=== PATIENT | female | born 1945 | race Caucasian/White ===

== ENCOUNTER 2019-04-13 15:30 | Outpatient (CLI) | payer MEDICARE, SELFPAY ==
--- NOTE | ~2019-04-13 | MM_ITS ---
EXAMINATION: MM screening sam BI w simone HISTORY: Screening mammogram TECHNIQUE: Craniocaudal and mediolateral oblique 3-D tomosynthesis images were obtained and synthetic 2-D images were generated. CAD analysis was submitted and interpreted. COMPARISON: 02/24/2018, 01/16/2016, 12/27/2014 bilateral digital screening mammogram examinations BREAST PARENCHYMAL COMPOSITION: There are scattered areas of fibroglandular density. FINDINGS: Stable mild fibroglandular asymmetry at upper central left breast since 12/27/2014. There i s no evidence of suspicious mass, calcification, or new architectural distortion to suggest malignanc y in either breast. There has been no suspicious interval change. IMPRESSION: 1. No mammographic evidence of malignancy. 2. Recommend routine screening mammography in one year. BI-RADS Category 2: Benign finding(s). Reviewed, dictated and finalized at location A. CAL UNDERWRITER
== END 2019-04-13 15:31 | disposition home or self-care (01) ==
LOC: ANHIMG 15:34
PROVIDERS: PCP Internal Medicine; Visit Provider Obstetrics & Gynecology
DX: Z12.31 Encounter for screening mammogram for malignant neoplasm of breast (principal)
CPT/HCPCS: 77063; 77067

== ENCOUNTER 2019-04-16 10:00 | Outpatient (RCR) | payer MEDICARE, SELFPAY ==
--- NOTE | 2019-03-18 17:03 | PTOPEVAL ---
PHYSICAL THERAPY EVALUATION AND PLAN OF CARE Thank you for referring this patient to [facility]. Elana will be seen in physical therapy 2x/week for 4 weeks. Please review, sign, date and return this plan of care SHAYY. I agree with and certify that the following plan of care is medically necessary. Referring Physician Date Attending Provider: Meir Joshi MD Evaluation Outpatient Past Medical History Neurological History Hx Neurological Disorders No Significant History Cardiovascular History Hx Other Cardiac Disorders Yes: BILAT VEIN STRIPPING 2 TIMES Respiratory History Hx Respiratory Disorders No Significant History Gastrointestinal History Hx Appendectomy Yes Hx Cholecystectomy Yes Hx Gastric Bypass Surgery Yes Genitourinary History Hx Genitourinary Disorders No Significant History Musculoskeletal History Hx Fractures Yes: RT ULNA Hematological History Hx Hematological Disorders No Significant History Endocrine History Hx Endocrine Disorders No Significant History HEENT History Hx Tonsillectomy Yes Hx Other HEENT Disorders Yes: GLASSES, BILAT HEARING AIDS Integumentary History Hx Skin Disorders No Significant History Reproductive History Hx Tubal Ligation Yes Psychosocial History Hx Psychiatric Disorders No Significant History Pain History History of Any Previous or Ongoing No Significant History Instance of Pain Anesthesia History Hx Anesthesia Reactions No Significant History Evaluation Information Problem Diagnosis right ORIF olecranon and proximal ulna Onset 02/20/2019 Cause fall Subjective Information Elana is here today after Query Text:As Reported By Patient/ surgery for ORIF of right Family olecranon and proximal ulna. She had ORIF on 02/24/2019. She is wearing a locked brace (locked at -10deg of extension ) today with restrictions of lifting no greater than 10lbs. She is to wear the brace except when showering. Pain Scale Pain Scale Used Numeric (1 - 10) Self Report Pain Assessment Right Elbow(s) Reported Pain Level 0 Pain Score Pain Score 0: Self Report Elbow/Forearm Range of Motion Right Elbow Flexion - Active 120 Elbow Extension - Active 0 Forearm Supination - Active 45 Forearm Pronation - Active 85 Wrist Range of Motion Right Wrist Flexion - Active 50 Wr
--- NOTE | 2019-04-16 11:01 | PTOPEVAL ---
PHYSICAL THERAPY PLAN OF CARE UPDATE AND PROGRESS REPORT Thank you for referring this patient to [facility]. iI recomend continuing PT 1x/week for 4 weeks for continued strengthening. Please review, sign, date and return this plan of care SHAYY. I agree with and certify that the following plan of care is medically necessary. Referring Physician Date Attending Provider: Meir Joshi MD Re-evaluation Diagnosis right ORIF olecranon and proximal ulna Onset 02/20/2019 Cause fall Subjective Information Elana is here today after Query Text:As Reported By Patient/ surgery for ORIF of right Family olecranon and proximal ulna. She had ORIF on 02/24/2019. Elana has participated in physical therapy for 4 weeks. She reports continuing to feel as though she is not as strong as she needs to be, but daily activities are getting easier. Elana is experiencing significant popping and clicking of the elbow. Self Report Pain Assessment Right Elbow(s) Reported Pain Level 4 Pain Score Pain Score 4: Self Report Additional Pain Score Comments area over incision and hardware is achy and painful; had to take Tylenol last night Upper Extremity Range of Motion Elbow/Forearm Range of Motion Right Elbow Flexion - Active 138 Elbow Extension - Active 0 Forearm Supination - Active 65 Forearm Pronation - Active 85 Wrist Range of Motion Right Wrist Flexion - Active 62 Wrist Extension - Active 60 Wrist Range of Motion Comments left wrist extension: 70deg left wrist flexion: 55deg Elbow/Forearm Right Elbow Flexion Strength 5 Normal Elbow Extension Strength 4+ Good + Forearm Pronation Strength 5 Normal Forearm Supination Strength 5 Normal Wrist Strength Right Wrist Flexion Strength 4+ Good + Wrist Extension Strength 4+ Good + 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
--- NOTE | 2019-04-20 12:45 | PCPTNOTE ---
PHYSICAL THERAPY DISCHARGE Attending Provider: Meir Joshi MD Patient:Elana Perez Date of :1945 Elana was seen in 04/16/2019 for a PT re-evaulation for right elbow ORIF. She followed up with physician due to increased clicking and discomofrt in the elbow. New x-rays indicate loose hardware and she was instructed to stop PT at this time, therefore she will be discharged from therapy at this time. The goals have been partially achieved. Thank you for referring this patient to [facility]. Please review, sign, date and return this discharge summary SHAYY. I have been updated about the patient's current status and I agree with discharge from the above service at this time. Referring Physician Date
== END 2019-04-20 14:59 | disposition home or self-care (01) ==
LOC: ANHPT 10:00
PROVIDERS: PCP Internal Medicine; Visit Provider Orthopaedic Surgery
DX: Z47.89 Encounter for other orthopedic aftercare (principal)
CPT/HCPCS: 97110; 97140; 97161

== ENCOUNTER 2019-06-22 10:30 | Outpatient (RCR) | payer MEDICARE, SELFPAY ==
--- NOTE | 2019-06-12 10:42 | PTOPEVAL ---
PHYSICAL THERAPY EVALUATION AND PLAN OF CARE Thank you for referring Elana Perez to [facility]. I recommend participation in physical therapy 1x every other week for 4 weeks to provide with and review HEP. Please review, sign, date and return this plan of care SHAYY. I agree with and certify that the following plan of care is medically necessary. Referring Physician Date Attending Provider: Meir Joshi MD Evaluation Diagnosis right distal ulnar fracture/ weakness Onset 02/2019 Cause fall Subjective Information Elana is here to participate Query Text:As Reported By Patient/ in right UE strengthening Family following right ulnar ORIF. She participated in PT in 2019, but then the fixture started to move and her physician requested d/c from PT at that time. The bones are now healing better and she requires continued strengthening to promote stability of elbow joint. Reports discomfort when pushing down, pulling back, and pushing/pulling heavy car doors. Pain Scale Pain Scale Used Numeric (1 - 10) Self Report Pain Assessment Right Elbow(s) Reported Pain Level 0 Pain Description Aching,Pulling Pain Frequency Acute,Intermittent Lowest Pain Intensity 0 Greatest Pain Intensity 6 Upper Extremity Range of Motion Elbow/Forearm Range of Motion Right Elbow Flexion - Active 135 Elbow Extension - Active 7 Elbow/Forearm Range of Motion Comments left elbow flexion: 141deg, extension: 7deg pronation/supination are nearly symmetrical in neutral position, but right supination is mildly decreased compared to left when in functional positions (i.e. grooming) Wrist Range of Motion Right Wrist Flexion - Active 50 Wrist Extension - Active 60 Wrist Range of Motion Comments left wrist flexion: 60, extension: 70; decreased wrist flexion when in forearm is in supinated position Upper Extremity Muscle Strength Testing Scapular/Shoulder Right Shoulder Flexion Strength 4- Good - Shoulder Abduction Strength 4 Good Elbow/Forearm
--- NOTE | 2019-06-22 11:20 | PTOPEVAL ---
PHYSICAL THERAPY DISCHARGE NOTE Thank you for referring Elana Perez to [facility]. I recommend discharge from PT; however, we will keep this chart open for 2 weeks in order for patient to follow-up with physician. Please review, sign, date and return this plan of care SHAYY. I agree with and certify that the following plan of care is medically necessary. Referring Physician Date Admitting Provider: Attending Provider: Meir Joshi MD Referring Provider: DISCHARGE Diagnosis right distal ulnar fracture/ weakness Onset 02/2019 Cause fall Subjective Information Elana is here 10 days after Query Text:As Reported By Patient/ last visit. She reports she is Family no longer epxeriencing pain when grooming, cleaning, lifting gallon of milk, lifting a full coffee pot, etc. Reports she can push to a stand from a chair without pain in the right elbow. Self Report Pain Assessment Right Elbow(s) Reported Pain Level 0 Upper Extremity Range of Motion Elbow/Forearm Range of Motion Right Elbow Flexion - Active 140 Elbow Extension - Active 5 Elbow/Forearm Range of Motion Comments left elbow flexion: 145deg, extension: 0deg pronation/supination are nearly symmetrical in neutral position, but right supination but currently reports that she has no pain or difficulty with grooming or cleaning tasks Wrist Range of Motion Right Wrist Flexion - Active 60 Wrist Extension - Active 60 Wrist Range of Motion Comments left wrist flexion: 60, extension: 70; decreased wrist flexion when in forearm is in supinated position Upper Extremity Muscle Strength Testing Scapular/Shoulder Right Shoulder Flexion Strength 5 Normal Shoulder Abduction Strength 5 Normal Elbow/Forearm Right Elbow Flexion Strength 4+ Good + Elbow Extension Strength 4+ Good + Forearm Pronation Strength 4+ Good + Forearm Supination Strength 4+ Good + Elbow/Forearm Strength Comments popping in elbow Wrist Strength Right Wrist Flexion Strength 4- Good - Wrist Extension Strength 4+ Good + Palpation Assessment Palpation Palpation very prominent screws under incision site - skin appears healthy and intact PT
== END 2019-06-22 13:14 | disposition home or self-care (01) ==
LOC: ANHPT 10:30
PROVIDERS: PCP Internal Medicine; Visit Provider Orthopaedic Surgery
DX: S52.601D Unspecified fracture of lower end of right ulna, subsequent encounter for closed fracture with routine healing (principal)
CPT/HCPCS: 97110; 97161

== ENCOUNTER 2019-09-01 01:18 | Outpatient (CLI) | payer MEDICARE, SELFPAY ==
[2019-09-01 19:25] LABS: SARS-CoV-2 RNA PCR Negative
== END 2019-09-01 01:19 | disposition home or self-care (01) ==
LOC: ANHCOVIDDT 01:19
PROVIDERS: PCP Internal Medicine; Visit Provider Orthopaedic Surgery
DX: Z01.812 Encounter for preprocedural laboratory examination (principal); Z11.59 Encounter for screening for other viral diseases
CPT/HCPCS: 87635; C9803; U0003

== ENCOUNTER 2019-09-02 03:00 | Day surgery (SDC) | payer MEDICARE, SELFPAY ==
[2019-08-31 16:00] VITALS: BMI 35.9
[2019-09-02] VITALS (8 sets, daily range): BP systolic 108–172; BP diastolic 75–82; PULSE 62–74; RESP 12–20; TEMP 36.4–36.6; O2SAT 73–100
--- NOTE | ~2019-09-02 | XR_ITS ---
EXAMINATION: XR surgery orthopedic EXAM DATE: 09/02/2019 10:57 INDICATION: Orthopedic hardware is unremarkable. TECHNIQUE: Fluoroscopy used during XR surgery orthopedic performed by Dr. Meir Joshi MD. The DAP for this procedure was 0.2 mGym2. Comparison made to fluoroscopic procedure 02/24/2019 FINDINGS: Previously seen proximal right ulnar plate bridging the comminuted fractures has been tristan delfino. There is also evidence of a healing radial head fracture Correlate with procedure note. IMPRESSION: Fluoroscopy used during right ulnar hardware removal. Reviewed, dictated and finalized at location A.
--- NOTE | 2019-09-02 07:14 | WPDHPUPDATE1 ---
History and Physical Update Update Date/Time: 09/02/19 07:14 History and Physical has been reviewed, including an updated exam of the patient. There are NO changes in the patient's condition. Risks, benefits, and alternatives have been discussed and questions answered. Patient agrees to proceed with procedure.
[2019-09-02] MEDS: ACETAMINOPHEN 500 MG TABLET 1000 MG PO (08:55)
[2019-09-02] MEDS: LACTATED RINGERS 1,000 ML 30 ML IV CONT ×2 (08:55→11:23)
--- NOTE | 2019-09-02 09:07 | WPDANESEPPF ---
Anes - Initial Pre Proc Eval Procedure: Operation Date: 09/02/19 10:30 Proposed Procedures p Removal Hardware Right Elbow - Meir Joshi MD Date/Time: 09/02/19 09:07 Surgeon: Meir Joshi MD Pre Op Diagnosis: retained painful hardware right elbow Patient Data Age: 73 Gender: F Height: 5 ft 1 in Weight: 86.3 kg Allergies Allergy/AdvReac Type Severity Reaction Status Date / Time codeine AdvReac awake Verified 08/31/19 15:53 Home Medications Medication Instructions Recorded Confirmed Type No Home Medications 08/31/19 08/31/19 History Patient hx anesthesia problems: none Family hx anesthesia problems: none PMFSH Past Medical History Medical History History of gastroesophageal reflux (GERD) Obesity Surgical History Surgical History History of appendectomy History of cholecystectomy History of gastric bypass History of tonsillectomy History of tubal ligation Family History Family History Mother No problems noted. Other Diabetes mellitus Social History Social History Smoking status: Former smoker Additional smoking assessment comments: 1PK/DAY/34YRS - QUIT 1999 Alcohol intake: current Living arrangements: with family Gender identity (if verbalized by the patient): Female Spiritual care concerns: No Anes - Eval Final PreProcedure Day of Procedure 09/02/19 09:07 Patient weight: obese Heart: regular rate and rhythm Lungs: clear to auscultation Airway: Mallampati scale class II Neurological: alert and oriented Last oral intake: >/= 8 hours ASA classification: II Emergent: no Anesthetic plan: proceed Anesthesia type and monitoring: general LMA and standard monitoring Informed Consent: The patient's anesthetic plan and its attendant risks and benefits were discussed with the patient/family/POA. Questions were solicited and answers provided to the satisfaction of the patient/family/POA.
[2019-09-02] MEDS: ceFAZolin 2 GM/D5W 50 ML 2 GM/50 ML BAG IVPB (09:57)
--- NOTE | 2019-09-02 11:23 | PM.OP ---
Procedure Note - Brief Procedure Note - Brief Date of procedure: 09/02/19 Pre-op diagnosis: retained painful hardware right elbow Post-op diagnosis: same Procedure performed: removal of hardware right elbow Anesthesia: GETA Surgeon: Meir Joshi MD Estimated blood loss (mL): 10 Complications: No immediate complications Condition: stable Disposition: PACU
--- NOTE | 2019-09-03 06:59 | OP_ITS ---
DATE OF PROCEDURE: 09/02/2019 PREOPERATIVE DIAGNOSIS: Retained and painful hardware, right elbow. POSTOPERATIVE DIAGNOSIS: Retained and painful hardware, right elbow. PROCEDURE: Removal of hardware, right elbow. ANESTHESIA: General. COMPLICATIONS: None. INDICATIONS: This is a 73-year-old female who underwent open reduction internal fixation of a proximal ulna fracture approximately 6 months ago and she then developed some hardware that had some protruding screws and that was painful for her. Per x-ray evaluation, she had good callus formation, so it was decided that it would be indicated to remove her hardware since she was having pain and the hardware was backing out. DESCRIPTION OF PROCEDURE: The patient was taken to the operating room in stable condition and placed in supine position. General anesthesia was induced. Then, the right upper extremity was prepped and draped sterilely from the fingers to the axillary region. Tourniquet was inflated. Incision was made over the same scar, which then was directly over the 3 distal screws. The soft tissue was dissected until all 3 screws were identified and all 3 screws were removed. At that point, since those were the only distal points of fixation, it was decided then to remove the rest of the hardware, so another incision was made proximally in the same area of the scar and all the proximal screws were removed and the plate was removed in its entirety. Then, the elbow was visualized under fluoroscopy and it was found that the fracture site was stable. There was no gross movement. There was callus formation. There was not complete consolidation. From clinical evaluation, prior where the patient had no pain aside from some protrusion of screws. It was felt that there was enough consolidation to remove the entire hardware. Direct palpation and direct visualization of the fracture site as well revealed callus formation. The wounds then were irrigated copiously with sterile water and antibiotic solution, and then 2-0 Vicryl and 3-0 Vicryl was used to approximate the subcutaneous tissues and the deeper fascial tissues and then jed were used to approximate the skin. Wounds were washed, placed a sterile dressing, and then a plaster posterior elbow splint was applied. The patient was extubated and sent to recovery. Bernardino I MT: [facility]
== END 2019-09-02 12:56 | disposition home or self-care (01) ==
PROVIDERS: PCP Internal Medicine; Visit Provider Orthopaedic Surgery
PROC: (CPT 20694; principal; 2019-09-02 10:30)
DX: T84.84XA Pain due to internal orthopedic prosthetic devices, implants and grafts, initial encounter (principal); M25.521 Pain in right elbow; Y83.8 Other surgical procedures as the cause of abnormal reaction of the patient, or of later complication, without mention of misadventure at the time of the procedure; S52.001D Unspecified fracture of upper end of right ulna, subsequent encounter for closed fracture with routine healing; E66.9 Obesity, unspecified; Z68.36 Body mass index [BMI] 36.0-36.9, adult; Z87.891 Personal history of nicotine dependence
CPT/HCPCS: 20680 ×2; 87635; A4565; A9270; C9803; J0690; J1100; J2250; J2370; J2405; J2704; J3010; J7120; U0003

== ENCOUNTER 2019-09-09 13:30 | Outpatient (CLI) | payer MEDICARE, SELFPAY ==
[2019-09-09 14:35] LABS: Iron 43 ug/dL (37-170)
[2019-09-09 14:44] LABS: Percent Iron Saturation 8 % (20-50)
[2019-09-09 14:54] LABS: Vitamin D 25 Hydroxy 87.4 ng/mL
[2019-09-09 15:03] LABS: Vitamin B12 > 1000.0 pg/mL (239-931)
== END 2019-09-09 13:31 | disposition home or self-care (01) ==
PROVIDERS: PCP Internal Medicine; Visit Provider Internal Medicine
DX: D50.9 Iron deficiency anemia, unspecified (principal); Z98.84 Bariatric surgery status; E55.9 Vitamin D deficiency, unspecified
CPT/HCPCS: 36415; 82306; 82607; 83540; 83550

== ENCOUNTER 2019-10-15 07:35 | Outpatient (CLI) | payer MEDICARE, SELFPAY ==
[2019-10-15 08:17] LABS: Alanine Aminotransferase 12 U/L (4-35); Alkaline Phosphatase 79 U/L (38-126); Anion Gap 6 mmol/L (8-16); Aspartate Amino Transferase 21 U/L (14-36); Bilirubin,Total 0.5 mg/dL (0.2-1.3); Blood Urea Nitrogen 36 mg/dL (7-17); Calcium 9.1 mg/dL (8.4-10.2); Carbon Dioxide 27 mmol/L (22-30); Chloride 105 mmol/L (98-107); Cholesterol 197 mg/dL (0-200); Estimated Glomerular Filt Rate > 60; Glucose 95 mg/dL (65-105); HDL Direct 67 mg/dL; Potassium 4.2 mmol/L (3.4-5.0); Sodium 138 mmol/L (137-145); Triglycerides 73 mg/dL (<150)
[2019-10-15 08:28] LABS: LDL Cholesterol Direct 96 mg/dL
[2019-10-15 08:53] LABS: Iron 260 ug/dL (37-170); Vitamin D 25 Hydroxy 98.3 ng/mL
[2019-10-15 08:58] LABS: Percent Iron Saturation 59 % (20-50)
== END 2019-10-15 07:36 | disposition home or self-care (01) ==
LOC: ANHLAB 07:36
PROVIDERS: PCP Internal Medicine; Visit Provider Nurse Practitioner
DX: E78.5 Hyperlipidemia, unspecified (principal); E55.9 Vitamin D deficiency, unspecified; D50.9 Iron deficiency anemia, unspecified
CPT/HCPCS: 36415; 80053; 80061; 82306; 83540; 83550

== ENCOUNTER 2020-05-21 07:02 | Outpatient (CLI) | payer MEDICARE, SELFPAY ==
[2020-05-21 07:28] LABS: Alanine Aminotransferase 14 U/L (4-35); Albumin Level 3.8 g/dL (3.5-5.1); Alkaline Phosphatase 77 U/L (38-126); Anion Gap 5 mmol/L (8-16); Aspartate Amino Transferase 25 U/L (14-36); Bilirubin,Total 0.6 mg/dL (0.2-1.3); Blood Urea Nitrogen 27 mg/dL (7-17); Calcium 8.8 mg/dL (8.4-10.2); Carbon Dioxide 29 mmol/L (22-30); Chloride 108 mmol/L (98-107); Cholesterol 193 mg/dL (0-200); Estimated Glomerular Filt Rate > 60; Glucose 104 mg/dL (65-105); HDL Direct 67 mg/dL; Potassium 3.9 mmol/L (3.4-5.0); Sodium 142 mmol/L (137-145); Triglycerides 85 mg/dL (<150)
[2020-05-21 07:39] LABS: LDL Cholesterol Direct 88 mg/dL
[2020-05-21 08:04] LABS: Vitamin D 25 Hydroxy 80.2 ng/mL
[2020-05-21 12:34] LABS: Iron 79 ug/dL (37-170)
[2020-05-21 12:35] LABS: Percent Iron Saturation 23 % (20-50)
== END 2020-05-21 07:03 | disposition home or self-care (01) ==
PROVIDERS: PCP Internal Medicine; Visit Provider Nurse Practitioner
DX: K21.9 Gastro-esophageal reflux disease without esophagitis (principal); E78.5 Hyperlipidemia, unspecified; E55.9 Vitamin D deficiency, unspecified; D50.9 Iron deficiency anemia, unspecified
CPT/HCPCS: 36415; 80053; 80061; 82306; 83540; 83550

== ENCOUNTER 2020-06-09 07:30 | Outpatient (CLI) | payer MEDICARE, SELFPAY ==
--- NOTE | ~2020-06-09 | MM_ITS ---
EXAMINATION: MM screening sam BI w simone HISTORY: Screening mammogram TECHNIQUE: Craniocaudal and mediolateral oblique 3-D tomosynthesis images were obtained and synthetic 2-D images were generated. CAD analysis was submitted and interpreted. COMPARISON: 04/13/2019, 02/24/2018, 01/16/2016 bilateral digital screening mammogram examinations BREAST PARENCHYMAL COMPOSITION: The breasts are almost entirely fatty. FINDINGS: Stable probable post-biopsy change in the upper central left breast; history of prior benig n left breast biopsy. There is no evidence of suspicious mass, calcification, or architectural distor tion to suggest malignancy in either breast. There has been no suspicious interval change. IMPRESSION: 1. No mammographic evidence of malignancy. 2. Recommend routine screening mammography in one year. BI-RADS Category 2: Benign finding(s). Reviewed, dictated and finalized at location A.
== END 2020-06-09 07:31 | disposition home or self-care (01) ==
PROVIDERS: PCP Internal Medicine; Visit Provider Obstetrics & Gynecology Gynecology
DX: Z12.31 Encounter for screening mammogram for malignant neoplasm of breast (principal)
CPT/HCPCS: 77063; 77067

== ENCOUNTER 2020-06-24 12:19 | Outpatient (CLI) | payer MEDICARE, SELFPAY ==
--- NOTE | ~2020-06-24 | DEXA_ITS ---
Bone Density Report Name: Elana Perez Age: 74 Sex: Female Ethnicity: White Date of : 1945 Indication: osteopenia; parental hip fracture; height loss; prior fracture; Referring Provider: Mackenzie Adame Study: Bone densitometry was performed. Exam Date: June 24, 2020 Accession number: [id number] Bone Density: Region BMD T-score Z-score Classification AP Spine (L1-L4) 0.908 -1.3 1.0 Osteopenia Femoral Neck (Left) 0.663 -1.7 0.3 Osteopenia Total Hip (Left) 0.803 -1.1 0.5 Osteopenia Total Hip Bilateral Avg 0.771 -1.4 0.3 Osteopenia Femoral Neck (Right) 0.585 -2.4 -0.4 Osteopenia Total Hip (Right) 0.738 -1.7 0.0 Osteopenia World Health Organization criteria for BMD impression classify patients as: Normal (T-score at or above -1.0), Osteopenia (T-score between -1.0 and -2.5), or Osteoporosis (T-score at or below -2.5). 10-year Fracture Risk(1): Major Osteoporotic Fracture 33% Hip Fracture 15% Reported Risk Factors: [place] (), Neck BMD=0.585, BMI=35.0, previous fracture, parental fracture (1) FRAX(R) Version 3.08. Fracture probability calculated for an untreated patient. Fracture probability may be lower if the patient has received treatment. Previous Exams: Region Exam Age BMD T-score BMD Change BMD Change Date g/cm2 vs Baseline vs Previous AP Spine(L1-L4) 06/24/2020 74 0.908 -1.3 -0.023(-2.4%)# -0.013(-1.4%) 02/24/2018 72 0.922 -1.1 -0.009(-1.0%)# 0.031(3.5%)* 01/16/2016 70 0.890 -1.4 -0.040(-4.3%)# -0.117(-11.6%) 12/16/2012 67 1.007 -0.4 0.076(8.2%)# 0.042(4.3%)# 11/30/2010 65 0.965 -0.7 0.034(3.7%)* -0.003(-0.4%) 12/16/2007 62 0.969 -0.7 0.038(4.0%)* 0.038(4.0%)* 12/13/2005 60 0.931 -1.1 Total Hip(Left) 06/24/2020 74 0.803 -1.1 -0.156(-16.2%) -0.050(-5.9%)* 02/24/2018 72 0.853 -0.7 -0.105(-11.0%) 0.010(1.2%) 01/16/2016 70 0.843 -0.8 -0.115(-12.0%) -0.087(-9.4%)# 12/16/2012 67 0.930 -0.1 -0.028(-2.9%)# 0.010(1.1%)# 11/30/2010 65 0.920 -0.2 -0.038(-4.0%)* -0.079(-7.9%)* 12/16/2007 62 0.999 0.5 0.041(4.3%)* 0.041(4.3%)* 12/13/2005 60 0.958 0.1 Total Hip(Right) 06/24/2020 74 0.738 -1.7 -0.116(-13.6%) -0.029(-3.8%)* 02/24/2018 72 0.768 -1.4 -0.087(-10.2%) 0.027(3.7%)* 01/16/2016 70 0.740 -1.7 -0.114(-13.4%) -0.076(-9.3%)# 12/16/2012 67 0.816 -1.0 -0.039(-4.5%)# -0.010(-1.3%)# 11/30/2010 65 0.827 -0.9 -0.028(-3.3%)* -0.041(-4.7%)* 12/16/2007 62 0.867 -0.6 0.013(1.5%) 0.013(1.5%) 12/13/2005 60 0.855 -0.7
== END 2020-06-24 12:20 | disposition home or self-care (01) ==
LOC: ANHIMG 12:21
PROVIDERS: PCP Internal Medicine; Visit Provider Nurse Practitioner
DX: Z78.0 Asymptomatic menopausal state (principal); M85.88 Other specified disorders of bone density and structure, other site; M85.852 Other specified disorders of bone density and structure, left thigh; M85.851 Other specified disorders of bone density and structure, right thigh
CPT/HCPCS: 77080

== ENCOUNTER 2020-07-12 08:30 | Outpatient (RCR) | payer MEDICARE, SELFPAY ==
--- NOTE | 2020-06-09 11:21 | PTOPEVAL ---
PHYSICAL THERAPY EVALUATION AND PLAN OF CARE 06-09-20 Thank you for referring Elana Perez to [facility], for the diagnosis of L lower quadrant pain. Elana is scheduled to be seen for therapy? 2 x/week for 5 weeks. Please review, sign, date and return this plan of care SHAYY. I agree with and certify that the following plan of care is medically necessary. Referring Physician Date Referring Provider: Mackenzie Adame, SALUDC *PT Outpatient Evaluation Document 06/09/20 10:05 BHARATI (Rec: 06/09/20 11:21 BHARATI [id number]) Source of Past Medical History Recalled from Previous Visit, Confirmed with Patient/Family Cardiovascular History Hx Hypercholesterolemia Yes Hx Other Cardiac Disorders Yes: BILAT VEIN STRIPPING 2 Gastrointestinal History Hx Appendectomy Yes Hx Cholecystectomy Yes Hx Gastric Bypass Surgery Yes Musculoskeletal History Hx Fractures Yes: RT ULNA Hx Orthopedic Surgery Yes: ORIF RT ARM FEB 2019 HEENT History Hx Tonsillectomy Yes Hx Other HEENT Disorders Yes: GLASSES, BILAT HEARING AIDS Reproductive History Hx Post Menopausal Yes Hx Tubal Ligation Yes Hx Other Medical Conditions Yes: B 12 deficiency; obesity Evaluation Information Problem Diagnosis L lower quadrant pain Onset Dec 2019 Subjective Information sitting on floor, onset of Query Text:As Reported By Patient/ Charley horse L anterior hip; Family off/on since then; flared up with car ride to [place]; had problems walking- had to use a cane for awhile; pain is less, but still there; Diagnostic Tests X-Rays For This Problem No MRI For This Problem No Other Tests For This Problem No Previous Treatments Previous Treatments For This Problem NO PT for hip Prior Level of Function Activity Level (Last 3 Months) 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
--- NOTE | 2020-07-12 09:25 | PTOPEVAL ---
PHYSICAL THERAPY DISCHARGE NOTE Thank you for referring Elana Perez to [facility].? The patient is discharged from PT with independent HEP. Please review, sign, date and return this plan of care SHAYY. I agree with and certify that the following plan of care is medically necessary. Referring Physician Date Attending Provider: Mackenzie Adame, [employer] SCOOPER-C Discharge Diagnosis L lower quadrant pain Onset Dec 2019 Subjective Information reports that the left hip is Query Text:As Reported By Patient/ better because she stretches Family and does exercises. She does still think she needs imaging of the hip. Does continue to have occasional increased symptoms that are functionally limiting. Pain Assessment Timing of Pain Assessment Timing of Pain Assessment Pre-Treatment Pain Scale Pain Scale Used Numeric (1 - 10) Self Report Pain Assessment Left Hip(s) Reported Pain Level 2 Pain Description Aching,With Movement Pain Frequency Chronic Pain Score Pain Score 2: Self Report Additional Pain Score Comments . Interventions Used Interventions Used By Clinicians Education,Exercise Pain Relief Interventions Used By Medication Patient Other Alleviating Interventions . Lower Extremity Range of Motion General Lower Extremity Range of Motion Gross Lower Extremity Range of Motion standing: trunk flexion WNL no Comments change in pain; extension WNL range and pulling reported L anterior hip; supine L hip: flex WNL, IR 10' , ER 45'- no increase pain supine R hip: flex WNL, IR 30' , ER 45'- no increase pain hamstring length with SLR B 80 ' prone knee flexion/ant hip- quad length: R 115'/ L ' 110 B knee and ankle ROM is WNL; Lower Extremity Muscle Strength Testing General Lower Extremity Strength Gross Lower Extremity Strength -single leg standing R 5 sec/ L 12 seconds-unsteady and slight hip flexion on both; increase L hip pain with SLS L ; - gross strength of R LE 4+/5 and L: hip 4+/5, knee and ankle 4+/5 Palpation tender along ITB, but non-
== END 2020-07-12 11:45 | disposition home or self-care (01) ==
LOC: ANHPT 08:30
PROVIDERS: PCP Internal Medicine; Referring Provider Nurse Practitioner; Visit Provider Nurse Practitioner
DX: R10.32 Left lower quadrant pain (principal)
CPT/HCPCS: 97035; 97110; 97140; 97161

== ENCOUNTER 2020-07-20 11:07 | Outpatient (CLI) | payer MEDICARE, SELFPAY ==
[2020-07-20 12:01] LABS: Basophils Percent Auto 0.6 % (0.2-1.2); Eosinophils Absolute Auto 0.1 K/mm3 (0-0.3); Eosinophils Percent Auto 1.6 % (0-4.4); Hematocrit 45.7 % (37.0-47.0); Hemoglobin 14.9 g/dL (12.0-15.0); Immature Granulocyte Absolute 0.02 K/mm3 (0.00-0.031); Immature Granulocyte Percent A 0.3 % (0-0.5); Lymphocytes Absolute Auto 1.58 K/mm3 (0.9-3.2); Mean Corpuscular HGB Conc 32.6 g/dl (32-36); Mean Corpuscular Hemoglobin 30.8 pg (26-34); Mean Corpuscular Volume 94.4 fl (80-100); Mean Platelet Volume 10.5 fl (7.4-10.4); Monocytes Absolute Auto 0.7 K/mm3 (0.1-0.6); Monocytes Percent Auto 10.6 % (2.6-8.5); Neutrophils Absolute Auto 3.9 K/mm3 (1.3-6.7); Neutrophils Percent Auto 61.9 % (45.5-73.1); Platelet Count Result 197 k/mm3 (150-375); Red Blood Count 4.84 M/mm3 (4.2-5.4); Red Cell Distribution Width 12.4 % (11.5-14.5); White Blood Count 6.3 K/mm3 (4.5-10.0)
[2020-07-20 12:39] LABS: Parathyroid Intact 23.9 pg/mL (7.5-53.5)
[2020-07-20 13:21] LABS: Folic Acid > 20.0 ng/mL (2.76->20)
[2020-07-20 13:31] LABS: Vitamin D 25 Hydroxy 76.7 ng/mL
[2020-07-24 11:15] LABS: Vitamin B1 10 nmol/L (8-30)
== END 2020-07-20 11:08 | disposition home or self-care (01) ==
PROVIDERS: PCP Internal Medicine; Visit Provider Nurse Practitioner Adult Health
DX: K90.9 Intestinal malabsorption, unspecified (principal); Z98.84 Bariatric surgery status
CPT/HCPCS: 36415; 82306; 82525; 82607; 82728; 82746; 83970; 84425; 85025

== ENCOUNTER 2020-10-19 00:45 | Day surgery (SDC) | payer MEDICARE, SELFPAY ==
[2020-10-11 08:54] VITALS: BMI 34.9
[2020-10-19 08:17] VITALS: BP 163/61; PULSE 61; RESP 20; TEMP 36.2; O2SAT 99; BMI 35.0
[2020-10-19] MEDS: LACTATED RINGERS 1,000 ML 150 ML IV CONT (08:31)
--- NOTE | 2020-10-19 08:32 | WPDANESEPPF ---
Anes - Initial Pre Proc Eval Procedure: Operation Date: 10/19/20 09:00 Proposed Procedures p Screening Colonoscopy - Tyson Bone MD Date/Time: 10/19/20 08:32 Surgeon: Tyson Bone MD Pre Op Diagnosis: neoplasm screening Patient Data Age: 75 Gender: F Height: 1.55 m Weight: 84.1 kg Last Vital Signs Temp 36.2 C L 10/19/20 08:17 Pulse 61 10/19/20 08:17 Resp 20 10/19/20 08:17 BP 163/61 H 10/19/20 08:17 Pulse Ox 99 10/19/20 08:17 Allergies Allergy/AdvReac Type Severity Reaction Status Date / Time No Known Allergies Allergy Verified 10/19/20 08:16 Home Medications Medication Instructions Recorded Confirmed Type Hair, Skin, Nails with Biotin 1 tablet PO DAILY 09/02/19 10/11/20 History Vitafusion 1 tab-cap PO DAILY 09/02/19 10/11/20 History ascorbic acid (vitamin C) [Vitamin 1 g PO DAILY 09/02/19 10/11/20 History C] calcium carbonate [Calcium 600] 600 mg PO BID 09/02/19 10/11/20 History cholecalciferol (vitamin D3) 50 125 mcg PO DAILY 05/23/20 10/11/20 History mcg (2,000 unit) capsule ferrous sulfate 325 mg PO EVERY OTHER DAY 10/11/20 10/11/20 History mecobalamin (vitamin B12) 5,000 mcg PO DAILY 10/11/20 10/11/20 History Patient hx anesthesia problems: none Family hx anesthesia problems: none PMFSH Past Medical History Medical History Broken arm (~2019) right broken arm History of gastroesophageal reflux (GERD) History of osteoporosis History of varicose veins surgery 0142-8806 Obesity Postmenopausal Screening for breast cancer Vitamin B12 deficiency Surgical History Surgical History History of adenoidectomy History of cholecystectomy (~1970) History of elbow surgery (~2019) History of gastric bypass (~2015) Revision History of tonsillectomy History of tubal ligation (~1981) History of varicose vein ligation and stripping (~2006) History of varicose vein ligation and stripping (~2008) Hx of laparoscopic gastric banding (~2009) Family History Family History Mother Osteoporosis Hip joint replacement status Other Diabetes mellitus Social History Social History Smoking packs per day: 1 Smoking cigarettes per day: 20.0 Years smoked: 30 Smoking pack-years: 30.00 Smoking status: Former smoker Tobacco type: cigarettes Smoking end date: 02/11/99 Additional smoking assessment comments: 1PK/DAY/34YRS - QUIT 1998 Alcohol intake: never Alcohol use details: occasionally Substance use: never Living arrangements: with family Gender identity (if verbalized by the patient): Female Spiritual care concerns: No Anes - Eval Final PreProcedure Day of Procedure 10/19/20 08:32 Patient weight: obese Heart: regular rate and rhythm Lungs: clear to auscultation Airway: Mallampati scale class II Neurological: alert and oriented Last oral intake: >/= 8 hours ASA classification: II Emergent: no Anesthetic plan: proceed Anesthesia type and monitoring: general GIVS and standard monitoring Informed Consent: The patient's anesthetic plan and its attendant risks and benefits were discussed with the patient/family/POA. Questions were solicited and answers provided to the satisfaction of the patient/family/POA.
--- NOTE | 2020-10-19 09:25 | PM.HPGS ---
History of Present Illness History of Present Illness Consent: Risks, benefits, and alternatives have been discussed and questions answered. Patient agrees to proceed with procedure. Chief complaint: neoplasm screening Narrative: Elana Perez is a 75 year old female with last colonoscopy 5 years ago. Review of Systems Constitutional: Constitutional: Denies headache(s) and Denies weakness Eyes: Eyes: Denies blurry vision ENT: Reports Normal hearing present, Denies headache(s) and Denies neck pain Cardiovascular: Cardiovascular: Denies chest pain and Denies dyspnea Respiratory: Respiratory: Denies dyspnea Gastrointestinal: Gastrointestinal: Reports no additional gastrointestinal complaints Genitourinary: Genitourinary: Denies dysuria Musculoskeletal: Musculoskeletal: Denies neck pain Integumentary/Breasts: Skin/Breast: Denies dry skin Neurologic: Reports Normal hearing present, Denies headache(s) and Denies weakness Psychiatric: Psychiatric: Denies anxiety Endocrine: Endocrine: Denies change in body appearance Hematologic/Lymphatic: Hematologic/Lymphatic: Denies easy bleeding Allergic/Immunologic: Allergic/Immunologic: Denies urticaria PMFSH Past Medical History Medical History (Updated 10/19/20 @ 09:25 by Tyson Bone MD) Broken arm (~2019) right broken arm Colon cancer screening History of gastroesophageal reflux (GERD) History of osteoporosis History of varicose veins surgery [id number] Obesity Postmenopausal Screening for breast cancer Vitamin B12 deficiency Surgical History Surgical History History of adenoidectomy History of cholecystectomy (~1970) History of elbow surgery (~2019) History of gastric bypass (~2015) Revision History of tonsillectomy History of tubal ligation (~1981) History of varicose vein ligation and stripping (~2006) History of varicose vein ligation and stripping (~2008) Hx of laparoscopic gastric banding (~2009) Family History Family History Mother Osteoporosis Hip joint replacement status Other Diabetes mellitus Social History Social History Smoking packs per day: 1 Smoking cigarettes per day: 20.0 Years smoked: 30 Smoking pack-years: 30.00 Smoking status: Former smoker Tobacco type: cigarettes Smoking end date: 01/01/00 Additional smoking assessment comments: 1PK/DAY/34YRS - QUIT 1998 Alcohol intake: never Alcohol use details: occasionally Substance use: never Living arrangements: with family Gender identity (if verbalized by the patient): Female Spiritual care concerns: No Meds Home Medications and Allergies Home Medications Medication Instructions Recorded Confirmed Type Hair, Skin, Nails with Biotin 1 tablet PO DAILY 09/02/19 10/11/20 History Vitafusion 1 tab-cap PO DAILY 09/02/19 10/11/20 History ascorbic acid (vitamin C) [Vitamin 1 g PO DAILY 09/02/19 10/11/20 History C] calcium carbonate [Calcium 600] 600 mg PO BID 09/02/19 10/11/20 History cholecalciferol (vitamin D3) 50 125 mcg PO DAILY 05/23/20 10/11/20 History mcg (2,000 unit) capsule ferrous sulfate 325 mg PO EVERY OTHER DAY 10/11/20 10/11/20 History mecobalamin (vitamin B12) 5,000 mcg PO DAILY 10/11/20 10/11/20 History Allergies Allergy/AdvReac Type Severity Reaction Status Date / Time No Known Allergies Allergy Verified 10/19/20 08:16 Vital Signs Vital Signs - 24 hr 10/19/20 08:17 Temperature 97.2 F L Pulse Rate 61 Respiratory Rate 20 Blood Pressure 163/61 H Pulse Oximetry 99 Exam Const: General: comfortable and no acute distress HENMT: General nose exam: Normal nares present Eyes: General: appearance normal, both eyes and all related structures Neck: Neck: no JVD Resp: Auscultation: clear to auscultation bilaterally Cardio:
[2020-10-19 09:42] VITALS: BP 121/72; PULSE 69; RESP 26; O2SAT 97
[2020-10-19 09:52] VITALS: BP 135/75; PULSE 66; RESP 26; O2SAT 97
[2020-10-19 10:02] VITALS: BP 165/80; PULSE 62; RESP 26; O2SAT 99
== END 2020-10-19 10:20 | disposition home or self-care (01) ==
PROVIDERS: PCP Internal Medicine; Visit Provider Internal Medicine Gastroenterology
PROC: 0DJD8ZZ Inspection of Lower Intestinal Tract, Via Natural or Artificial Opening Endoscopic (ICD-10-PCS; CPT 45378; principal; 2020-10-19 09:00)
DX: Z12.11 Encounter for screening for malignant neoplasm of colon (principal); K63.5 Polyp of colon; K57.30 Diverticulosis of large intestine without perforation or abscess without bleeding; K64.8 Other hemorrhoids; M81.0 Age-related osteoporosis without current pathological fracture; E53.8 Deficiency of other specified B group vitamins; Z98.84 Bariatric surgery status; Z87.891 Personal history of nicotine dependence; E66.9 Obesity, unspecified; Z68.35 Body mass index [BMI] 35.0-35.9, adult
CPT/HCPCS: 45385; 88305; J2704; J7120

== ENCOUNTER 2020-11-22 07:23 | Outpatient (CLI) | payer MEDICARE, SELFPAY ==
[2020-11-22 08:09] LABS: Basophils Absolute Auto 0.1 K/mm3 (0.0-0.1); Basophils Percent Auto 1.4 % (0.2-1.2); Eosinophils Absolute Auto 0.2 K/mm3 (0-0.3); Eosinophils Percent Auto 2.8 % (0-4.4); Hematocrit 46.7 % (37.0-47.0); Immature Granulocyte Absolute 0.02 K/mm3 (0.00-0.031); Immature Granulocyte Percent A 0.4 % (0-0.5); Lymphocytes Absolute Auto 1.33 K/mm3 (0.9-3.2); Lymphocytes Percent Auto 23.3 % (18.3-44.2); Mean Corpuscular HGB Conc 32.1 g/dl (32-36); Mean Corpuscular Hemoglobin 31.7 pg (26-34); Mean Corpuscular Volume 98.7 fl (80-100); Mean Platelet Volume 9.8 fl (7.4-10.4); Monocytes Absolute Auto 0.6 K/mm3 (0.1-0.6); Neutrophils Absolute Auto 3.6 K/mm3 (1.3-6.7); Neutrophils Percent Auto 62.1 % (45.5-73.1); Platelet Count Result 197 k/mm3 (150-375); Red Blood Count 4.73 M/mm3 (4.2-5.4); Red Cell Distribution Width 12.2 % (11.5-14.5); White Blood Count 5.7 K/mm3 (4.5-10.0)
[2020-11-22 08:42] LABS: Alanine Aminotransferase 15 U/L (4-35); Alkaline Phosphatase 75 U/L (38-126); Anion Gap 7 mmol/L (8-16); Aspartate Amino Transferase 26 U/L (14-36); Bilirubin,Total 0.7 mg/dL (0.2-1.3); Blood Urea Nitrogen 25 mg/dL (7-17); Calcium 9.2 mg/dL (8.4-10.2); Carbon Dioxide 27 mmol/L (22-30); Chloride 107 mmol/L (98-107); Cholesterol 219 mg/dL (0-200); Estimated Glomerular Filt Rate > 60; Glucose 90 mg/dL (65-110); HDL Direct 78 mg/dL; Potassium 4.3 mmol/L (3.4-5.0); Sodium 141 mmol/L (137-145); Triglycerides 72 mg/dL (<150)
[2020-11-22 08:53] LABS: LDL Cholesterol Direct 107 mg/dL
[2020-11-22 09:42] LABS: Vitamin B12 > 1000.0 pg/mL (239-931)
[2020-11-22 09:51] LABS: Iron 87 ug/dL (37-170)
[2020-11-22 10:05] LABS: Percent Iron Saturation 25 % (20-50)
[2020-11-22 11:21] LABS: Vitamin D 25 Hydroxy 76.2 ng/mL
== END 2020-11-22 07:24 | disposition home or self-care (01) ==
PROVIDERS: PCP Internal Medicine; Visit Provider Nurse Practitioner
DX: E53.8 Deficiency of other specified B group vitamins (principal); D50.9 Iron deficiency anemia, unspecified; E78.5 Hyperlipidemia, unspecified; E55.9 Vitamin D deficiency, unspecified
CPT/HCPCS: 36415; 80053; 80061; 82306; 82607; 83540; 83550; 85025

== ENCOUNTER 2021-01-03 09:30 | Outpatient (CLI) | payer MEDICARE, SELFPAY ==
[2021-01-03 10:36] LABS: Alanine Aminotransferase 17 U/L (4-35); Albumin Level 4.1 g/dL (3.5-5.1); Alkaline Phosphatase 85 U/L (38-126); Anion Gap 7 mmol/L (8-16); Aspartate Amino Transferase 25 U/L (14-36); Bilirubin,Total 0.5 mg/dL (0.2-1.3); Blood Urea Nitrogen 21 mg/dL (7-17); Calcium 8.8 mg/dL (8.4-10.2); Carbon Dioxide 25 mmol/L (22-30); Chloride 106 mmol/L (98-107); Estimated Glomerular Filt Rate > 60; Glucose 93 mg/dL (65-110); Potassium 4.4 mmol/L (3.4-5.0); Sodium 138 mmol/L (137-145)
[2021-01-03 12:02] LABS: Hemoglobin A1C 5.3 % (<5.7)
[2021-01-05 05:53] LABS: Insulin Level Total 5.7 uIU/mL (<=19.6)
== END 2021-01-03 09:31 | disposition home or self-care (01) ==
LOC: ANHLAB 09:38
PROVIDERS: PCP Internal Medicine
DX: E78.5 Hyperlipidemia, unspecified (principal); I10 Essential (primary) hypertension; K90.9 Intestinal malabsorption, unspecified; R79.89 Other specified abnormal findings of blood chemistry; E66.01 Morbid (severe) obesity due to excess calories; E63.9 Nutritional deficiency, unspecified; E88.9 Metabolic disorder, unspecified; Z98.84 Bariatric surgery status
CPT/HCPCS: 36415; 80053; 83036; 83525; 84443

== ENCOUNTER 2021-06-03 09:00 | Outpatient (CLI) | payer MEDICARE, SELFPAY ==
[2021-06-03 09:30] LABS: Hematocrit 45.5 % (37.0-47.0); Hemoglobin 14.9 g/dL (12.0-15.0)
[2021-06-03 09:46] LABS: Alanine Aminotransferase 15 U/L (4-35); Albumin Level 4.3 g/dL (3.5-5.1); Alkaline Phosphatase 71 U/L (38-126); Anion Gap 9 mmol/L (8-16); Aspartate Amino Transferase 23 U/L (14-36); Bilirubin,Total 0.7 mg/dL (0.2-1.3); Blood Urea Nitrogen 27 mg/dL (7-17); Calcium 8.9 mg/dL (8.4-10.2); Carbon Dioxide 21 mmol/L (22-30); Chloride 110 mmol/L (98-107); Cholesterol 233 mg/dL (0-200); Estimated Glomerular Filt Rate 49; Glucose 99 mg/dL (65-110); HDL Direct 70 mg/dL; Sodium 140 mmol/L (137-145); Triglycerides 96 mg/dL (<150)
[2021-06-03 09:56] LABS: Iron 117 ug/dL (37-170)
[2021-06-03 09:57] LABS: LDL Cholesterol Direct 105 mg/dL
[2021-06-03 10:06] LABS: Percent Iron Saturation 32 % (20-50)
[2021-06-03 10:23] LABS: Vitamin D 25 Hydroxy 97.6 ng/mL
[2021-06-03 10:35] LABS: Vitamin B12 > 1000.0 pg/mL (239-931)
== END 2021-06-03 09:01 | disposition home or self-care (01) ==
LOC: ANHLAB 09:04
PROVIDERS: PCP Internal Medicine; Visit Provider Internal Medicine
DX: E78.5 Hyperlipidemia, unspecified (principal); I10 Essential (primary) hypertension; E53.8 Deficiency of other specified B group vitamins; D64.9 Anemia, unspecified; E55.9 Vitamin D deficiency, unspecified; D50.9 Iron deficiency anemia, unspecified
CPT/HCPCS: 36415; 80053; 80061; 82306; 82607; 83540; 83550; 85014; 85018

== ENCOUNTER 2021-07-03 07:24 | Outpatient (CLI) | payer MEDICARE, SELFPAY ==
--- NOTE | ~2021-07-03 | MM_ITS ---
EXAMINATION: MM screening sam BI w simone HISTORY: Screening mammogram TECHNIQUE: Craniocaudal and mediolateral oblique 3-D tomosynthesis images were obtained and synthetic 2-D images were generated. CAD analysis was submitted and interpreted. COMPARISON: 06/09/2020, 04/13/2019, 02/24/2018 bilateral screening mammogram examinations BREAST PARENCHYMAL COMPOSITION: The breasts are almost entirely fatty. FINDINGS: There is stable mild asymmetry in the upper central left breast at mid depth, likely relate d to prior reportedly benign left breast biopsy. There is no evidence of suspicious mass, calcificati on, or architectural distortion to suggest malignancy in either breast. There has been no suspicious interval change. IMPRESSION: 1. No mammographic evidence of malignancy. 2. Recommend routine screening mammography in one year. BI-RADS Category 2: Benign finding(s). Reviewed, dictated and finalized at location A.
== END 2021-07-03 07:25 | disposition home or self-care (01) ==
LOC: ANHIMG 07:26
PROVIDERS: PCP Internal Medicine; Visit Provider Obstetrics & Gynecology Gynecology
DX: Z12.31 Encounter for screening mammogram for malignant neoplasm of breast (principal)
CPT/HCPCS: 77063; 77067

== ENCOUNTER 2021-08-30 09:03 | Outpatient (CLI) | payer MEDICARE, SELFPAY ==
[2021-08-30 09:28] LABS: Calcium 8.4 mg/dL (8.4-10.2)
[2021-08-31 06:00] LABS: Parathyroid Intact 189.8 pg/mL (7.5-53.5)
== END 2021-08-30 09:04 | disposition home or self-care (01) ==
LOC: ANHLAB 09:04
PROVIDERS: PCP Internal Medicine; Visit Provider Internal Medicine
DX: E34.9 Endocrine disorder, unspecified (principal)
CPT/HCPCS: 36415; 82310; 83970

== ENCOUNTER 2021-09-06 11:02 | Outpatient (CLI) | payer MEDICARE, SELFPAY ==
[2021-09-10 15:36] LABS: Total Volume 1700 mL; Urine Calcium 5.2 mg/dL
== END 2021-09-06 11:03 | disposition home or self-care (01) ==
PROVIDERS: PCP Internal Medicine; Visit Provider Internal Medicine
DX: E34.9 Endocrine disorder, unspecified (principal)
CPT/HCPCS: 82340

== ENCOUNTER 2021-12-19 06:39 | Outpatient (CLI) | payer MEDICARE, SELFPAY ==
[2021-12-19 07:11] LABS: Basophils Absolute Auto 0.1 K/mm3 (0.0-0.1); Eosinophils Absolute Auto 0.1 K/mm3 (0-0.3); Eosinophils Percent Auto 1.9 % (0-4.4); Hematocrit 45.8 % (37.0-47.0); Hemoglobin 14.9 g/dL (12.0-15.0); Immature Granulocyte Absolute 0.02 K/mm3 (0.00-0.031); Immature Granulocyte Percent A 0.3 % (0-0.5); Lymphocytes Absolute Auto 1.28 K/mm3 (0.9-3.2); Lymphocytes Percent Auto 18.4 % (18.3-44.2); Mean Corpuscular HGB Conc 32.5 g/dl (32-36); Mean Corpuscular Volume 95.2 fl (80-100); Monocytes Absolute Auto 0.6 K/mm3 (0.1-0.6); Monocytes Percent Auto 8.6 % (2.6-8.5); Neutrophils Absolute Auto 4.9 K/mm3 (1.3-6.7); Neutrophils Percent Auto 69.8 % (45.5-73.1); Platelet Count Result 199 k/mm3 (150-375); Red Blood Count 4.81 M/mm3 (4.2-5.4); Red Cell Distribution Width 12.5 % (11.5-14.5)
[2021-12-19 07:24] LABS: Alanine Aminotransferase 19 U/L (6-35); Albumin Level 4.1 g/dL (3.5-5.1); Alkaline Phosphatase 78 U/L (38-126); Anion Gap 8 mmol/L (8-16); Aspartate Amino Transferase 25 U/L (14-36); Bilirubin,Total 0.6 mg/dL (0.2-1.3); Blood Urea Nitrogen 23 mg/dL (7-17); Calcium 8.3 mg/dL (8.4-10.2); Carbon Dioxide 28 mmol/L (22-30); Chloride 104 mmol/L (98-107); Cholesterol 205 mg/dL (0-200); Estimated Glomerular Filt Rate > 60; Glucose 88 mg/dL (65-110); HDL Direct 69 mg/dL; Potassium 4.3 mmol/L (3.4-5.0); Sodium 140 mmol/L (137-145); Triglycerides 87 mg/dL (<150)
[2021-12-19 07:25] LABS: Calcium 8.4 mg/dL (8.4-10.2)
[2021-12-19 07:36] LABS: LDL Cholesterol Direct 91 mg/dL
[2021-12-19 08:12] LABS: Iron 86 ug/dL (37-170); Percent Iron Saturation 22 % (20-50); Vitamin D 25 Hydroxy 89.3 ng/mL
== END 2021-12-19 06:40 | disposition home or self-care (01) ==
PROVIDERS: PCP Internal Medicine; Visit Provider Nurse Practitioner
DX: E53.8 Deficiency of other specified B group vitamins (principal); E55.9 Vitamin D deficiency, unspecified; E78.5 Hyperlipidemia, unspecified; D50.9 Iron deficiency anemia, unspecified
CPT/HCPCS: 36415; 80053; 80061; 82306; 82310; 82607; 83540; 83550; 83970; 85025

== ENCOUNTER 2022-06-19 06:54 | Outpatient (CLI) | payer MEDICARE, SELFPAY ==
[2022-06-19 08:01] LABS: Alanine Aminotransferase 19 U/L (6-35); Albumin Level 3.9 g/dL (3.5-5.1); Alkaline Phosphatase 77 U/L (38-126); Anion Gap 5 mmol/L (8-16); Aspartate Amino Transferase 24 U/L (14-36); Bilirubin,Total 0.7 mg/dL (0.2-1.3); Blood Urea Nitrogen 27 mg/dL (7-17); Calcium 9.2 mg/dL (8.4-10.2); Carbon Dioxide 30 mmol/L (22-30); Chloride 103 mmol/L (98-107); Cholesterol 206 mg/dL (0-200); Estimated Glomerular Filt Rate 49; Glucose 82 mg/dL (65-110); HDL Direct 67 mg/dL; Phosphorus 3.7 mg/dL (2.5-4.5); Sodium 138 mmol/L (137-145); Triglycerides 103 mg/dL (<150)
[2022-06-19 08:03] LABS: Parathyroid Intact 38.3 pg/mL (7.5-53.5)
[2022-06-19 08:12] LABS: LDL Cholesterol Direct 96 mg/dL
[2022-06-19 08:15] LABS: Iron 90 ug/dL (37-170)
[2022-06-19 08:21] LABS: Vitamin D 25 Hydroxy 92.8 ng/mL
[2022-06-19 08:24] LABS: Percent Iron Saturation 23 % (20-50)
== END 2022-06-19 06:55 | disposition home or self-care (01) ==
PROVIDERS: PCP Family Medicine; Referring Provider Nurse Practitioner Family; Visit Provider Internal Medicine Endocrinology, Diabetes & Metabolism
DX: I10 Essential (primary) hypertension (principal); E78.5 Hyperlipidemia, unspecified; D50.9 Iron deficiency anemia, unspecified; E34.9 Endocrine disorder, unspecified; Z98.84 Bariatric surgery status; R79.89 Other specified abnormal findings of blood chemistry; E53.8 Deficiency of other specified B group vitamins; E55.9 Vitamin D deficiency, unspecified
CPT/HCPCS: 36415; 80053; 80061; 82306; 82607; 83540; 83550; 83970; 84100

== ENCOUNTER 2022-07-10 16:06 | Outpatient (CLI) | payer MEDICARE, SELFPAY ==
[2022-07-10 16:44] LABS: Anion Gap 7 mmol/L (8-16); Blood Urea Nitrogen 32 mg/dL (7-17); Calcium 8.8 mg/dL (8.4-10.2); Carbon Dioxide 27 mmol/L (22-30); Chloride 104 mmol/L (98-107); Estimated Glomerular Filt Rate 37; Glucose 128 mg/dL (65-110); Potassium 4.4 mmol/L (3.4-5.0); Sodium 138 mmol/L (137-145)
== END 2022-07-10 16:07 | disposition home or self-care (01) ==
PROVIDERS: PCP Family Medicine; Visit Provider Nurse Practitioner Family
DX: R94.4 Abnormal results of kidney function studies (principal)
CPT/HCPCS: 36415; 80048

== ENCOUNTER 2022-08-29 07:21 | Outpatient (CLI) | payer MEDICARE, SELFPAY ==
--- NOTE | ~2022-08-29 | DEXA_ITS ---
Bone Density Report Name: GAETANO CORRAL Age: 76 Sex: Female Ethnicity: White Date of : 1945 Indication: osteopenia; parental hip fracture; height loss; prior fracture; postmenopausal Referring Provider: MARQUEZ ATKINSON Study: Bone densitometry was performed. Exam Date: August 29, 2022 Accession number: [id number] Bone Density: Region BMD T-score Z-score Classification AP Spine(L1-L4) 0.896 -1.4 1.0 Osteopenia Femoral Neck (Left) 0.688 -1.5 0.6 Osteopenia Total Hip (Left) 0.809 -1.1 0.7 Osteopenia Femoral Neck (Right) 0.574 -2.5 -0.4 Osteoporosis Total Hip (Right) 0.721 -1.8 0.0 Osteopenia Total Hip Mean 0.765 -1.5 0.4 Osteopenia World Health Organization criteria for BMD impression classify patients as: Normal (T-score at or above -1.0), Osteopenia (T-score between -1.0 and -2.5), or Osteoporosis (T-score at or below -2.5). 10-year Fracture Risk: FRAX not reported because: Some T-score for Spine Total or Hip Total or Femoral Neck at or below -2.5 Previous Exams: Region Exam Age BMD T-score BMD Change BMD Change Date g/cm2 vs Baseline vs Previous AP Spine (L1-L4) 08/29/2022 76 0.896 -1.4 0.005 (0.6%) -0.013 (-1.4%) 06/24/2020 74 0.908 -1.3 0.018 (2.0%) -0.013 (-1.4%) 02/24/2018 72 0.922 -1.1 0.031 (3.5%)* 0.031 (3.5%)* 01/16/2016 70 0.890 -1.4 Total Hip(Left) 08/29/2022 76 0.809 -1.1 -0.034 (-4.0%) 0.007 (0.8%) 06/24/2020 74 0.803 -1.1 -0.040 (-4.8%) -0.050 (-5.9%) 02/24/2018 72 0.853 -0.7 0.010 (1.2%) 0.010 (1.2%) 01/16/2016 70 0.843 -0.8 Total Hip(Right) 08/29/2022 76 0.721 -1.8 -0.019 (-2.6%) -0.017 (-2.3%) 06/24/2020 74 0.738 -1.7 -0.002 (-0.2%) -0.029 (-3.8%) 02/24/2018 72 0.768 -1.4 0.027 (3.7%)* 0.027 (3.7%)* 01/16/2016 70 0.740 -1.7 *Denotes significance at 95% confidence level, LSC for AP Spine = 0.022 g/cm2, LSC for Total Hip = 0.027 g/cm2 Clinical Information Provided by Patient: Has had a low trauma fracture Parent has had a hip fracture Has used the following medications: Vitamin D, Calcium Patient maximum height was 64 Menopause Age: 53 No regular weight bearing exercise Drinks caffeinated beverages Onset of menses at age 13 Number of children 2 Impression: The patient has established osteoporosis, based on the Right Femoral Neck T-score and the existence of a prior fracture. The patient has risk factors, including: parental
--- NOTE | ~2022-08-29 | MM_ITS ---
EXAMINATION: MM screening sam BI w simone HISTORY: Screening TECHNIQUE: Craniocaudal and mediolateral oblique 3-D tomosynthesis images were obtained and synthetic 2-D images were generated. CAD analysis was submitted and interpreted. COMPARISON: Comparison to multiple prior studies sequentially, with oldest reviewed study dated 12/12. BREAST PARENCHYMAL COMPOSITION: The breasts are almost entirely fatty. FINDINGS: There is no evidence of suspicious mass, calcification, or architectural distortion to sugg est malignancy in either breast. There has been no suspicious interval change. IMPRESSION: 1. No mammographic evidence of malignancy. 2. Recommend routine screening mammography in one year. BI-RADS Category 1: Negative Reviewed, dictated and finalized at location A.
== END 2022-08-29 07:22 | disposition home or self-care (01) ==
LOC: ANHIMG 07:24
PROVIDERS: PCP Family Medicine; Visit Provider Nurse Practitioner Family
DX: Z12.31 Encounter for screening mammogram for malignant neoplasm of breast (principal); Z78.0 Asymptomatic menopausal state; M85.88 Other specified disorders of bone density and structure, other site; M85.852 Other specified disorders of bone density and structure, left thigh; M85.851 Other specified disorders of bone density and structure, right thigh; M81.0 Age-related osteoporosis without current pathological fracture
CPT/HCPCS: 77063; 77067; 77080

== ENCOUNTER 2022-09-10 09:23 | Outpatient (CLI) | payer MEDICARE, SELFPAY ==
--- NOTE | ~2022-09-10 | US_ITS ---
Renal-Bladder ultrasound Clinical History: Abnormal findings of blood chemistry Technique: Real-time sonographic imaging of the kidneys and urinary bladder was performed. Findings: The right kidney measures 10.1 cm in length and the left kidney measures 9.5 cm. There is n o hydronephrosis or renal calculus identified. Renal cortical echogenicity is within normal limits. N o solid renal mass lesion is identified. Left renal cyst noted. The urinary bladder is moderately distended at the time of this exam. No intraluminal echoes are iden tified. No abnormal wall thickening is seen. Impression: Left renal cyst, otherwise unremarkable exam. Reviewed, dictated and finalized at location M. Impression: Left renal cyst, otherwise unremarkable exam.
[2022-09-10 10:06] LABS: Albumin Level 4.2 g/dL (3.5-5.1); Anion Gap 3 mmol/L (8-16); Blood Urea Nitrogen 23 mg/dL (7-17); Calcium 9.6 mg/dL (8.4-10.2); Carbon Dioxide 30 mmol/L (22-30); Chloride 101 mmol/L (98-107); Estimated Glomerular Filt Rate 49; Glucose 85 mg/dL (65-110); Phosphorus 3.9 mg/dL (2.5-4.5); Potassium 4.4 mmol/L (3.4-5.0); Sodium 134 mmol/L (137-145)
[2022-09-10 10:13] LABS: Complement C3 91 mg/dL (88-165)
[2022-09-10 11:00] LABS: Creatinine Urine 42.8 mg/dL; Total Protein Urine Random 18 mg/dL; Ur Ttl Prot Creatinine Ratio 0.42 mg/mg (0-0.20)
[2022-09-10 11:04] LABS: Sodium Urine Random 25 meq/L
[2022-09-13 02:17] LABS: Albumin 3.8 g/dL (3.8-4.8); Alpha 1 Globulin 0.3 g/dL (0.2-0.3); Alpha 2 Globulin 0.9 g/dL (0.5-0.9); Beta 1 Globulin 0.5 g/dL (0.4-0.6); Gamma Globulin 1.2 g/dL (0.8-1.7); Protein, Total 6.9 g/dL (6.1-8.1)
[2022-09-16 05:38] LABS: Abnormal Protein Band 1 3 mg/dL; Creatinine, Random Urine 41 mg/dL (20-275); Total Protein/Creatinine Ratio 244 mg/g creat (24-184)
[2022-09-16 15:37] LABS: Anti Glomerular Basement Memb <1.0 AI (<1.0)
[2022-09-16 23:02] LABS: ANCA Screen Negative (Negative)
== END 2022-09-10 09:24 | disposition home or self-care (01) ==
PROVIDERS: PCP Family Medicine; Visit Provider Internal Medicine Nephrology
DX: R79.89 Other specified abnormal findings of blood chemistry (principal); N28.1 Cyst of kidney, acquired
CPT/HCPCS: 36415; 76775; 80069; 82570; 83520; 84155; 84156; 84165; 84166; 84300; 86036; 86038; 86160; 86225

== ENCOUNTER 2022-12-20 07:10 | Outpatient (CLI) | payer MEDICARE, SELFPAY ==
[2022-12-20 08:18] LABS: Hematocrit 45.2 % (37.0-47.0); Hemoglobin 14.5 g/dL (12.0-15.0); Mean Corpuscular HGB Conc 32.1 g/dl (32-36); Mean Corpuscular Hemoglobin 30.9 pg (26-34); Mean Corpuscular Volume 96.2 fl (80-100); Mean Platelet Volume 10.1 fl (7.4-10.4); Platelet Count Result 204 k/mm3 (150-375); Red Cell Distribution Width 12.1 % (11.5-14.5)
[2022-12-20 08:32] LABS: Alanine Aminotransferase 12 U/L (6-35); Albumin Level 3.9 g/dL (3.5-5.1); Alkaline Phosphatase 80 U/L (38-126); Anion Gap 6 mmol/L (8-16); Aspartate Amino Transferase 20 U/L (14-36); Blood Urea Nitrogen 35 mg/dL (7-17); Calcium 9.3 mg/dL (8.4-10.2); Carbon Dioxide 28 mmol/L (22-30); Chloride 105 mmol/L (98-107); Cholesterol 223 mg/dL (0-200); Estimated Glomerular Filt Rate 44; Glucose 81 mg/dL (65-110); HDL Direct 73 mg/dL; Potassium 4.3 mmol/L (3.4-5.0); Sodium 139 mmol/L (137-145); Triglycerides 65 mg/dL (<150)
[2022-12-20 08:43] LABS: LDL Cholesterol Direct 112 mg/dL
[2022-12-20 09:02] LABS: Vitamin D 25 Hydroxy 54.4 ng/mL
== END 2022-12-20 07:11 | disposition home or self-care (01) ==
PROVIDERS: PCP Nurse Practitioner; Visit Provider Nurse Practitioner
DX: E55.9 Vitamin D deficiency, unspecified (principal); E78.5 Hyperlipidemia, unspecified; D50.9 Iron deficiency anemia, unspecified
CPT/HCPCS: 36415; 80053; 80061; 82306; 85027

== ENCOUNTER 2023-06-20 06:57 | Outpatient (CLI) | payer MEDICARE, SELFPAY ==
[2023-06-20 07:58] LABS: Creatinine Urine 47.9 mg/dL; Total Protein Urine Random 21 mg/dL; Ur Ttl Prot Creatinine Ratio 0.44 mg/mg (0-0.20)
[2023-06-20 08:08] LABS: Alanine Aminotransferase 17 U/L (6-35); Alkaline Phosphatase 70 U/L (38-126); Anion Gap 7 mmol/L (4-12); Aspartate Amino Transferase 26 U/L (14-36); Bilirubin,Total 0.9 mg/dL (0.2-1.3); Blood Urea Nitrogen 21 mg/dL (7-17); Calcium 9.7 mg/dL (8.4-10.2); Carbon Dioxide 24 mmol/L (22-30); Chloride 108 mmol/L (98-107); Cholesterol 215 mg/dL (0-200); Estimated Glomerular Filt Rate 54; Glucose 91 mg/dL (65-110); HDL Direct 87 mg/dL; Potassium 4.2 mmol/L (3.4-5.0); Sodium 139 mmol/L (137-145); Triglycerides 71 mg/dL (<150)
[2023-06-20 08:09] LABS: Albumin Level 3.9 g/dL (3.5-5.1); Anion Gap 6 mmol/L (4-12); Blood Urea Nitrogen 21 mg/dL (7-17); Calcium 9.5 mg/dL (8.4-10.2); Carbon Dioxide 24 mmol/L (22-30); Chloride 109 mmol/L (98-107); Estimated Glomerular Filt Rate 54; Glucose 91 mg/dL (65-110); Phosphorus 4.4 mg/dL (2.5-4.5); Potassium 4.2 mmol/L (3.4-5.0); Sodium 139 mmol/L (137-145)
[2023-06-20 08:19] LABS: LDL Cholesterol Direct 104 mg/dL
[2023-06-20 08:43] LABS: Hemoglobin A1C 5.2 % (<5.7)
[2023-06-20 13:38] LABS: Vitamin D 25 Hydroxy 44.9 ng/mL
[2023-06-27 22:13] LABS: Immunofixation, Serum Normal pattern.
== END 2023-06-20 06:58 | disposition home or self-care (01) ==
PROVIDERS: PCP Nurse Practitioner; Referring Provider Internal Medicine Nephrology; Visit Provider Nurse Practitioner
DX: E78.5 Hyperlipidemia, unspecified (principal); E55.9 Vitamin D deficiency, unspecified; I12.9 Hypertensive chronic kidney disease with stage 1 through stage 4 chronic kidney disease, or unspecified chronic kidney disease; N18.31 Chronic kidney disease, stage 3a; E66.9 Obesity, unspecified; E53.8 Deficiency of other specified B group vitamins
CPT/HCPCS: 36415; 80053; 80061; 80069; 82306; 82570; 82607; 83036; 84156; 86334; 86335

== ENCOUNTER 2023-08-13 08:58 | Outpatient (CLI) | payer MEDICARE, SELFPAY ==
--- NOTE | ~2023-08-13 | US_ITS ---
EXAMINATION: US arterial ankle brachial ind DATE: 08/13/2023 10:31 INDICATION: Left foot pain TECHNIQUE: Segmental pressures and plethysmographic and Doppler waveforms of the brachial and lower e xtremity arteries were obtained. COMPARISON: None. FINDINGS: Right and left brachial artery pressures of 208 mm Hg and 201 mm Hg, respectively, are concordant (no rmal difference <= 30 mmHg). The right ankle-brachial index (DANIEL) is unable to be obtained due to inability to occlude the vessels at either the right posterior tibial or distal pedis arteries (normal >= 0.9-1.0). The right great t oe-brachial index (TBI) is 0.76 (normal >= 0.65). Arterial Doppler waveforms are biphasic with brisk systolic upstrokes at both right posterior tibial and dorsalis pedis arteries. The left DANIEL is is also unable to be obtained due to inability to occlude the vessels. The left TBI i s 0.52. Arterial Doppler waveforms are biphasic with brisk systolic upstrokes at both left posterior tibial and dorsalis pedis arteries. IMPRESSION: 1. 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 2. No significant arterial occlusive disease to the right lower limb with normal right TBI. Reviewed, dictated and finalized at location B. IMPRESSION: 1. 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 2. No significant arterial occlusive disease to the right lower limb with simeon l right TBI.
== END 2023-08-13 08:59 | disposition home or self-care (01) ==
PROVIDERS: PCP Nurse Practitioner; Visit Provider Nurse Practitioner
DX: M79.672 Pain in left foot (principal); M79.89 Other specified soft tissue disorders
CPT/HCPCS: 93922

== ENCOUNTER 2023-10-31 16:28 | Outpatient (CLI) | payer MEDICARE, SELFPAY ==
--- NOTE | ~2023-10-31 | MM_ITS ---
EXAMINATION: MM screening sam BI w simone HISTORY: Screening mammogram TECHNIQUE: Craniocaudal and mediolateral oblique 3-D tomosynthesis images were obtained and synthetic 2-D images were generated. CAD analysis was submitted and interpreted. COMPARISON: 08/29/2022, 07/03/2021, 06/09/2020 BREAST PARENCHYMAL COMPOSITION:Not Dense. The breasts are almost entirely fatty FINDINGS: No suspicious mass, calcification, or architectural distortion are identified in either doug ast to suggest malignancy. There has been no suspicious interval change. IMPRESSION: No mammographic evidence of malignancy. Recommend routine screening mammography in one year. BI-RADS Category 1: Negative Reviewed, dictated and finalized at location .
== END 2023-10-31 16:29 | disposition home or self-care (01) ==
LOC: ANHIMG 16:30
PROVIDERS: PCP Nurse Practitioner; Visit Provider Obstetrics & Gynecology Gynecology
DX: Z12.31 Encounter for screening mammogram for malignant neoplasm of breast (principal)
CPT/HCPCS: 77063; 77067

== ENCOUNTER 2023-12-28 07:51 | Outpatient (CLI) | payer MEDICARE, SELFPAY ==
[2023-12-28 09:24] LABS: Alanine Aminotransferase 13 U/L (6-35); Albumin Level 3.8 g/dL (3.5-5.1); Alkaline Phosphatase 69 U/L (38-126); Anion Gap 3 mmol/L (4-12); Aspartate Amino Transferase 24 U/L (14-36); Bilirubin,Total 1.1 mg/dL (0.2-1.3); Blood Urea Nitrogen 29 mg/dL (7-17); Carbon Dioxide 28 mmol/L (22-30); Chloride 107 mmol/L (98-107); Cholesterol 202 mg/dL (0-200); Estimated Glomerular Filt Rate 48; Glucose 86 mg/dL (65-110); HDL Direct 77 mg/dL; Potassium 4.3 mmol/L (3.4-5.0); Sodium 138 mmol/L (137-145); Triglycerides 79 mg/dL (<150)
[2023-12-28 09:31] LABS: Hemoglobin A1C 5.4 % (<5.7)
[2023-12-28 09:36] LABS: LDL Cholesterol Direct 92 mg/dL
== END 2023-12-28 07:52 | disposition home or self-care (01) ==
PROVIDERS: PCP Nurse Practitioner; Visit Provider Nurse Practitioner
DX: D50.9 Iron deficiency anemia, unspecified (principal); E53.8 Deficiency of other specified B group vitamins; E55.9 Vitamin D deficiency, unspecified; E78.5 Hyperlipidemia, unspecified; I10 Essential (primary) hypertension; E03.9 Hypothyroidism, unspecified; R79.89 Other specified abnormal findings of blood chemistry
CPT/HCPCS: 36415; 80053; 80061; 83036; 84443

== ENCOUNTER 2024-05-21 09:53 | Outpatient (CLI) | payer MEDICARE, SELFPAY ==
--- NOTE | ~2024-05-21 | XR_ITS ---
Thoracic spine: Clinical Indication: Compression fracture AP and lateral views were performed. There is moderate compression fracture of T9. There is moderate degenerative disc changes throughout the thoracic spine.. The intervertebral disc spaces appear normal. Paravertebral soft tissues appear normal. Impression: Moderate T9 compression fracture, age-indeterminate. Moderate degenerative disc change throughout the thoracic spine. Kyphosis. Reviewed, dictated and finalized at [facility]. Impression: Moderate T9 compression fracture, age-indeterminate. Moderate degenerative disc change throughout the thoracic spine. Kyphosis.
--- NOTE | ~2024-05-21 | XR_ITS ---
Lumbosacral Spine: AP and lateral views Clinical History: Pain Findings: The normal lordotic curve is maintained. No fracture seen. There is 6 mm anterolisthesis of L4 over L5. There are mild degenerative disc changes. There is severe facet arthropathy, especially from L4 through S1. The sacroiliac joints are normally outlined. Impression: Moderate degenerative spondylosis, as above. 6 mm anterolisthesis of L4 over L5. Reviewed, dictated and finalized at location . Impression: Moderate degenerative spondylosis, as above. 6 mm anterolisthesis of L4 over L5.
== END 2024-05-21 09:54 | disposition home or self-care (01) ==
DX: M54.50 Low back pain, unspecified (principal); M47.816 Spondylosis without myelopathy or radiculopathy, lumbar region; M40.204 Unspecified kyphosis, thoracic region; M51.34 Other intervertebral disc degeneration, thoracic region; M48.54XA Collapsed vertebra, not elsewhere classified, thoracic region, initial encounter for fracture
CPT/HCPCS: 72072; 72100

== ENCOUNTER 2024-06-13 09:10 | Outpatient (CLI) | payer MEDICARE, SELFPAY ==
[2024-06-13 09:43] LABS: Alanine Aminotransferase 11 U/L (6-35); Alkaline Phosphatase 55 U/L (38-126); Anion Gap 7 mmol/L (4-12); Aspartate Amino Transferase 18 U/L (14-36); Bilirubin,Total 0.8 mg/dL (0.2-1.3); Blood Urea Nitrogen 30 mg/dL (7-17); Calcium 9.2 mg/dL (8.4-10.2); Carbon Dioxide 26 mmol/L (22-30); Chloride 105 mmol/L (98-107); Cholesterol 208 mg/dL (0-200); Estimated Glomerular Filt Rate 34; Glucose 87 mg/dL (65-110); HDL Direct 82 mg/dL; Potassium 4.9 mmol/L (3.4-5.0); Sodium 138 mmol/L (137-145); Triglycerides 80 mg/dL (<150)
[2024-06-13 09:55] LABS: LDL Cholesterol Direct 88 mg/dL
[2024-06-13 10:01] LABS: Vitamin D 25 Hydroxy 48.2 ng/mL
--- OUTSIDE RECORDS SUMMARY | 2024-06-13 16:02 | XMS_ITS | Encounter Summary ---
Author Organization [facility] Address [address] [place] [address] Phone Care Team Providers Care Professor Of Religious Studies Name Role Phone Nithin Mata DO Primary Care Provider [phone] Encounter Details Date Type Department Care Team (Latest Contact Info) Description 01/03/2021 Orders Only MIN IM WGT Scanning, Provider Social History Tobacco Use Types Packs/Day Years Used Date Smoking Tobacco: Former Cigarettes [id number] Smokeless Tobacco: Never Alcohol Use Standard Drinks/Week Comments Yes 0 (1 standard drink = 0.6 oz pur e alcohol) rarely Comments Unknown Sex and Gender Information Value Date Recorded Sex Assigned at Not on file Legal Sex 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 Gender Identity Not on file Sexual Orientation Not on file documented as of this encounter Plan of Treatment Not on file documented as of this encounter Procedures Procedure Name Priority Date/Time Associated Diagnosis Comments SCAN - LABS 01/03/2021 documented in this encounter Results * SCAN - LABS (01/03/2021) us Provider Scanning Final Result documented in this encounter Visit Diagnoses Not on filedocumented in this encounter Care Teams Professor Of Religious Studies Relationship Specialty Start Date End Date Nithin Mata DO PCP - General Internal Medicine 08/26/17 documented as of this encounter
--- OUTSIDE RECORDS SUMMARY | 2024-06-13 16:02 | XMS_ITS | Encounter Summary ---
Author Organization [facility] Address [address] [facility] [address] [place] [address] Phone Care Team Providers Care Bookkeeper Name Role Phone Nithin Mata DO Primary Care Provider [phone] Encounter Details Date Type Department Care Team (Late st Contact Info) Description 06/12/2024 Results Follow-Up [facility] In[facility] Surgery [address] [place] [address] Medical Office Building [address] [place] [address] Yodit Shine, JASON [address] [facility] [phone] [place] [address] Social History Tobacco Use Types Packs/Day Years Used Date Smoking Tobacco: Former Cigarettes 967 - 1999 Passive Smoke Exposure: Past Smokeless Tobacco: Never Alcohol Use Standard Drinks/Week Comments Yes 0 (1 standard drink = 0.6 oz pur e alcohol) rarely AUDIT-C Answer Date Recorded Q1: How often do you have a drink containing alc ohol? Monthly or less 06/09/2024 Q2: How many drinks containi ng alcohol do you have on a typical day when you are drinking? 1 or 2 06/09/2024 Q3: How often do you have si x or more drinks on one occasion? Never 06/09/2024 Personal Safety Answer Date Recorded Have you ever been in or are you currently in a harmful physical or emotional relationship or is someone making you feel afraid or unsafe? 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 documented in this encounter Plan of Treatment Not on file documented as of this encounter Visit Diagnoses Not on filedocumented in this encounter Care Teams Bookkeeper Relationship Specialty Start Date End Date Nithin Mata DO PCP - General Internal Medicine 08/26/17 documented as of this encounter
--- OUTSIDE RECORDS SUMMARY | 2024-06-13 16:02 | XMS_ITS | Clinical Summary ---
Author Organization [facility] Address [address] [place] [address] Care Team Providers Care Willow Machine Operator Name Role Phone Unavailable Primary Care Provider Unavailabl e Social History Tobacco Use Types Packs/Day Years Used Date Smoking Tobacco: Never Assessed Comments Unknown Sex and Gender Information Value Date Recorded Sex Assigned at Not on file Legal Sex Female 6:04 PM CDT Gender Identity Not on file Sexual Orientation Not on file Plan of Treatment Health Maintenance Due Date Last Done Comments Hepatitis C 09/21/1965 DTaP, Tdap and Td Vaccines ( 1 - Tdap) 09/21/1966 Pneumococcal Vaccine: 50+ Ye ars (1 of 1 - PCV) 09/21/1997 Zoster Vaccines (1 of 2) 09/21/1997 Dexa Scan (General) 09/21/2012 RSV Immunization or 60+ Years (1 - 1-dose 75+ series) 09/21/2022 COVID-19 Vaccine (2023-2 5 season) 2023 Meningococcal B Vaccine Aged Out No l onger eligible based on patient's age to complete this topic Meningococcal Vaccine Aged Out No natan ruben eligible based on patient's age to complete this topic RSV Immunizations Under 20 Months Aged Out No longer eligible based on patient's age to complete this topic
--- OUTSIDE RECORDS SUMMARY | 2024-06-13 16:02 | XMS_ITS | Referral Summary ---
Author Organization [facility] Address [address] [place] [address] Care Team Providers Care Wet Primer Powder Blender Name Role Phone Nithin Mata DO Primary Care Provider [phone] Encounters Date Type Department Care Team Description 06/12/2024 Results Follow-Up [facility] Minimally Invasive Surgery [address] [place] [address] Medical Office Building [address] [place] [phone] Yodit Shine NP 06/09/2024 10:25 AM CDT Lab [address] [place] [phone] BMI 29.0-29.9,adult; History of gastric bypass; Intestinal malabsorption, unspecified type; Other specified disorders of carbohydrate metabolism 06/09/2024 10:00 AM CDT Office Visit [facility] Invasive Surgery [address] [place] [address] Office [address] [place] [phone] Yodit Shine NP BMI 29.0-29.9,adult (Primary Dx); Bariatric surgery status; History of gastric bypass; Intestinal malabsorption, unspecified type; Other specified disorders of carbohydrate metabolism from Last 3 Months Allergies No known active allergies Medications Prescription Drug name: biotin Dose: 1 tab. Route: po Frequency: daily Duration: Active Prescription Drug name: Chewable MVI Dose:1 tab. Route: po Frequency:daily Duration: Active clobetasoL (TEMOVATE) 0.05 % cream APPLY CREAM TOPICALLY TO AFFECTED AREA TWICE DAILY UNTIL CLEAR THEN ONCE A WEEK 06/09/19 22 Active PreviDent 5000 Booster Plus 1.1 % paste BRUSH ON TEETH AND HOLD IN MOUTH, THEN SPIT. DO NOT RINSE. 06/08/19 23 Active ondansetron ODT (ZOFRAN-ODT) 4 mg disintegrating tablet Take 1 tablet (4 mg total) by mouth every 8 (eight) hours as needed for nausea 20 tablet 11 11/04/19 24 Active semaglutide (WEGOVY) 2.4 mg/0.75 mL auto-injectorIndi cations:Weight Loss Management for Obese Patient (BMI >= 30),cardiovascula r event risk reduction in obesity Inject 2.4 mg under the skin every 7 days NELSON Wegovy. 3 mL 2 06/02/19 25 025 Active Wegovy 1.7 mg/0.75 mL auto-injectorIndi cations:Class 1 obesity with body mass index (BMI) of 33.0 to 33.9 in adult, unspecified obesity type, unspecified whether serious comorbidity present INJECT 3/4 (THREE-FOURTHS ) ML SUBCUTANEOUSLY ONCE A WEEK 4 mL 05/07/19 25 025 Disconti nued(The rapy complete d) Active Problems Problem Noted Date Diagnosed Date Cano's esophagus without dysplasia 07/20/2022 Abnormal finding of blood chemistry, unspecified 01/07/2021 Encounter for weight management 01/02/2021 Assessment & Plan (08/14/2021 2:00 PM CDT): Reviewed calorie restriction based on BMR as previously detailed. Reviewed recommendation/goal of >/= 150 minutes/week moderate-intensity aerobic exercise. Asked to keep detailed food diary for at least 1 week and bring to next visit and/or continue tracking on phone. Assessment & Plan (01/02/2021 10:51 AM SCIENTIFIC AFFAIRS MANAGER): Discussed that significant health benefits/risk reduction may be seen with even 5% weight loss. Discussed that weight loss will require calorie deficit. Calculated basal metabolic rate and estimated total energy expenditure; discussed 500-1000 kcal/day deficit to lose 1-2 lb per week. Asked to keep detailed food diary for at least 1 week and bring to next visit. Discussed relatively small, although significant, role of exercise in weight loss; greater importance in weight maintenance as shown in Look Ahead study and National Weight Control Registry. Discussed recommendation/goal for 150 minutes per week moderate-intensity aerobic exercise. Metabolic and nutritional disorder 01/02/2021 Assessment & Plan (08/14/2021 2:13 PM CDT): Reviewed interim labs. Continue low-carb (<150 g/day), low-glycemic diet. Consider GLP-1 RA. Assessment & Plan (01/07/2021 3:52 PM SCIENTIFIC AFFAIRS MANAGER): Labs. Reviewed available prior labs in chart and Care Everywhere. Recommended low-glycemic diet. Reviewed importance of adequate protein intake of 1-1.2 g/kg IBW/day. Hx of bariatric surgery 08/26/2017 Assessment & Plan (01/07/2021 3:54 PM SCIENTIFIC AFFAIRS MANAGER): Routine labs to evaluate for vitamin deficiencies in setting of intestinal malabsorption. Intestinal malabsorption 08/26/2017 Assessment & Plan (01/07/2021 3:54 PM SCIENTIFIC AFFAIRS MANAGER): Routine labs to evaluate for vitamin deficiencies in setting of intestinal malabsorption. Hypertension 08/26/2017 Assessment & Plan (01/07/2021 3:50 PM SCIENTIFIC AFFAIRS MANAGER): Reviewed role of diet, exercise, weight loss in controlling blood pressure. Recommended low sodium/DASH diet. GERD (gastroesophageal reflux disease) 8 Hyperlipidemia 08/26/2017 Assessment & Plan (01/07/2021 3:50 PM SCIENTIFIC AFFAIRS MANAGER): Discussed role of diet, exercise and weight loss in improving lipid profile. Resolved Problems Problem Noted Date Diagnosed Date Resolved Date Class 3 severe obesity due t o excess calories with serious comorbidity in adult 08/26/20172023 Assessment & Plan (08/14/2021 2:16 PM CDT): Obesity is overall unchanged. Diet interventions: as noted. Regular aerobic exercise program discussed. Pharmacotherapy as ordered. Will try increasing topiramate as this helped with evening grazing/cravings/mindless eating. Assessment & Plan (01/07/2021 3:53 PM SCIENTIFIC AFFAIRS MANAGER): Obesity is worsening. General weight loss/lifestyle modification strategies discussed (elicit support from others; identify saboteurs; non-food rewards, etc). Diet interventions: as noted. Informal exercise measures discussed, e.g. taking stairs instead of elevator. Regular aerobic exercise program discussed. More detailed recommendations pending review of labs, food record. Social History Tobacco Use Types Packs/Day Years Used Date Smoking Tobacco: Former Cigarettes 1 967 - 1999 Passive Smoke Exposure: Past Smokeless Tobacco: Never Tobacco Cessation:Counseling Given: Not Answered Alcohol Use Standard Drinks/Week Comments Yes 0 [...] on file Legal Sex Female 8:40 AM SCIENTIFIC AFFAIRS MANAGER Gender Identity Not on file Sexual Orientation Not on file Last Filed Vital Signs Vital Sign Reading Time Taken Comments Blood Pressure 181/101 06/09/2024 9:34 AM CDT Pulse 61 12/24/2023 9:23 AM SCIENTIFIC AFFAIRS MANAGER Temperature 36.3 C (97.3 F) 08/23/2022 2:30 PM CDT Respiratory Rate 28 08/23/2022 3:01 PM CDT Oxygen Saturation 99% 12/24/2023 9:23 AM SCIENTIFIC AFFAIRS MANAGER Inhaled Oxygen Concentration - - Weight 69.8 kg (153 lb 12.8 oz) 06/09/2024 9:34 AM CDT Height 154.9 cm (5' 1 ) 06/09/2024 9:34 AM CDT Body Mass Index 29.06 06/09/2024 9:34 AM CDT Plan of Treatment Not on file Procedures Procedure Name Priority Date/Time Associated Diagnosis Comments EGFR Routine 06/09/2024 10:33 AM CDT BMI 29.0-29.9,adult History of gastric bypass Intestinal malabsorption, unspecified type DIFFERENTIAL AUTO Routine 06/09/2024 10: 33 AM CDT BMI 29.0-29.9,adult History of gastric bypass Intestinal malabsorption, unspecified type CBC WITH AUTO DIFFERENTIAL Routine 06/09/2024 10:33 AM CDT BMI 29.0-29.9,adult History of gastric bypass Intestinal malabsorption, unspecified type COMPREHENSIVE METABOLIC PANEL Routine 06/09/2024 10:33 AM CDT BMI 29.0-29.9,adult History of gastric bypass Intestinal malabsorption, unspecified type COPPER, SERUM Routine 06/09/2024 10:33 AM CDT BMI 29.0-29.9,adult History of gastric bypass Intestinal malabsorption, unspecified type FERRITIN Routine 06/09/2024 10:33 AM CDT BMI 29.0-29.9,adult History of gastric bypass Intestinal malabsorption, unspecified type FOLATE Routine 06/09/2024 10:33 AM CDT BMI 29.0-29.9,adult History of gastric bypass Intestinal malabsorption, unspecified type HEMOGLOBIN A1C Routine 06/09/2024 10:33 AM CDT BMI 29.0-29.9,adult History of gastric bypass Intestinal malabsorption, unspecified type Other specified disorders of carbohydrate metabolism IRON PROFILE W/ IBC Routine 06/09/2024 1 0:33 AM CDT BMI 29.0-29.9,adult History of gastric bypass Intestinal malabsorption, unspecified type LIPID PANEL Routine 06/09/2024 10:33 AM CDT BMI 29.0-29.9,adult History of gastric bypass Intestinal malabsorption, unspecified type PTH Routine 06/09/2024 10:33 AM CDT BMI 29.0-29.9,adult History of gastric bypass Intestinal malabsorption, unspecified type VITAMIN B1 Routine 06/09/2024 10:33 AM CDT BMI 29.0-29.9,adult History of gastric bypass Intestinal malabsorption, unspecified type VITAMIN B12 Routine 06/09/2024 10:33 AM CDT BMI 29.0-29.9,adult History of gastric bypass Intestinal malabsorption, unspecified type VITAMIN D 25 HYDROXY Routine 06/09/2024 10:33 AM CDT BMI 29.0-29.9,adult History of gastric bypass Intestinal malabsorption, unspecified type from Last 3 Months Results * (ABNORMAL) eGFR (06/09/2024 10:33 AM CDT) Pathologist [facility] eGFR 48(L) >=60 mL/min/1. 73 m2 Comment: Interpretive Data Reference Interval Normal >/= 90 mL/min/1.73m2 Mildly decreased* 60 - 89 mL/min/1.73m2 Mildly to moderately decreased 45 - 59 mL/min/1.73m2 Moderately to severely decreased 30 - 44 mL/min/1.73m2 Severely decreased 15 - 29 mL/min/1.73m2 Kidney Failure < 15 mL/min/1.73m2 *Relative to young adult level Estimated glomerular filtration rate is determined by the 2020 CKD-EPI equation recommended by the National Kidney Foundation (A Unifying Approach to GFR Estimation: Recommendations of the NKF-ASK Task Force on Reassessing the Inclusion of Race in Diagnosing Kidney Disease, JASN 2020). The CKD-EPI equation should not be used for patients with unstable renal function and has not been validated in children and those over 70. Current interpretive data was last reviewed 2020. Blood 06/09/2024 10:3 3 AM CDT 06/09/2024 11:18 AM CDT us Yodit Shine SOLAR PANEL TECHNICIAN LAB BLOOD ORDERABLES Final Result SMITA LYMAN [id number] [place] [address] * Differential, auto (06/09/2024 10:33 AM CDT) Neutrophil abs 4.96 1.50 - 6.50 K/cumm Imm gran abs 0.02 0.00 - 0.10 K/cumm [facility] Lymphocyte abs 1.56 0.80 - 3.30 K/cumm [facility] Monocyte abs 0.50 0.20 - 0.80 K/cumm [facility] Eosinophil abs 0.10 0.00 - 0.50 K/cumm [facility] Basophil abs 0.07 0.00 - 0.10 K/cumm [facility] Neutrophil pct 68.8 % [facility] Comment: Interpretive Data Percent cell count reference ranges are not reported, since discordance with absolute values may lead to misinterpretation of CBC data. Current Interpretive Data was last revised on 2017. Imm gran pct 0.3 % [facility] Comment: Interpretive Data Percent cell count reference ranges are not reported, since discordance with absolute values may lead to misinterpretation of CBC data. Current Interpretive Data was last revised on 2017. Lymphocyte pct 21.6 % SMITA PRIDE Comment: Interpretive Data Percent cell count reference ranges are not reported, since discordance with absolute values may lead to misinterpretation of CBC data. Current Interpretive Data was last revised on 2017. Monocyte pct 6.9 % [facility] Comment: Interpretive Data Percent cell count reference ranges are not reported, since discordance with absolute values may lead to misinterpretation of CBC data. Current Interpretive Data was last revised on 2017. Eosinophil pct 1.4 % [facility] Comment: Interpretive Data Percent cell count reference ranges are not reported, since discordance with absolute values may lead to misinterpretation of CBC data. Current Interpretive Data was last revised on 2017. Basophil pct 1.0 % SMITA LYMAN Comment: Interpretive Data Percent cell count reference ranges are not reported, since discordance with absolute values may lead to misinterpretation of CBC data. Current Interpretive Data was last revised on 2017. Blood 06/09/2024 10:3 3 AM CDT 06/09/2024 11:18 AM CDT Yodit Shine SOLAR PANEL TECHNICIAN LAB BLOOD ORDERABLES Final Result Performing Organization Address [facility] Co de Phone Number SMITA [facility] [address] [place] [employer]. [facility] [employer] [place], [place] [phone] * Iron profile w/ IBC (06/09/2024 10:33 AM CDT) Pathologist [facility] Iron 122 35 - 145 mcg/dL Comment:Testing performed by : [facility], [address] [place] [address]., [id number] TIBC 331 250 - 400 mcg/dL SMITA LYMAN Comment:Testing performed by : [facility], [address] [place] [address]., [phone] Transferrin saturation 37 20 - 50 % SMITA RUSHINGWROMY Comment:Testing performed by : [facility], [address] [place] [address]., [id number] Blood 06/09/2024 10:3 3 AM CDT 06/09/2024 12:16 PM CDT us Yodit Shine SOLAR PANEL TECHNICIAN LAB BLOOD ORDERABLES Final Result Performing Organization Address [facility] de Phone Number [facility] [address] [address]. [facility] [address] [place], [place] [phone] * (ABNORMAL) CBC with auto differential (06/09/2024 10:33 AM CDT) WBC 7.21 3.80 - 9.90 K/cumm Hgb 15.0 11.9 - 15.5 g/dL SMITA PRIDE Hct 45.6(H) 35.6 - 45.5 % SMITA LYMAN Plt 223 150 - 400 K/cumm SMITA LYMAN MPV 10.0 9.1 - 12.3 fL SMITA LYMAN RBC 4.74 3.90 - 5.20 M/cumm SMITA LYMAN MCV 96.2 81.3 - 96.4 fL SMITA LYMAN MCH 31.6 27.1 - 33.3 pg SMITA LYMAN MCHC 32.9 32.3 - 35.7 g/dL SMITA LYMAN RDW CV 12.8 11.1 - 14.9 % SMITA LYMAN RDW SD 45.4 35.7 - 48.1 fL SMITA LYMAN NRBC abs 0.00 0.00 - 0.01 K/cumm SMITA LYMAN Blood 06/09/2024 10:3 3 AM CDT 06/09/2024 11:18 AM CDT Yodit Shine NP LAB BLOOD ORDERABLES Final Result SMITA LYMAN [id number] [facility]. [place] [address] * Copper, serum (06/09/2024 10:33 AM CDT) Copper 96 77 - 206 mcg/dL Vu ref Lab Comment: ADDITIONAL INFORMATION This test was developed and its performance characteristics determined by [facility] in a manner consistent with CLIA requirements. This test has not been cleared or approved by the U.S. Food and Drug Administration. Test Performed by: [facility] Laboratories - [address] [address] [employer] Seat Cover Installer: Abelino Cleveland Ph.D.; CLIA# [id number] Blood 06/09/2024 10:3 3 AM CDT 06/09/2024 11:18 AM CDT Yodit Shine NP LAB BLOOD ORDERABLES Final Result Performing Organization Address [facility] Co de Phone Number SMITA [facility] [address] Department [employer] [place], [place] [phone] [place] ref Lab * Vitamin D 25 hydroxy (06/09/2024 10:33 AM CDT) Pathologist [facility] Vitamin D 25-OH 43 30 - 80 ng/mL Blood 06/09/2024 10:3 3 AM CDT 06/09/2024 11:18 AM CDT Yodit Wareon Heatherlorene SOLAR PANEL TECHNICIAN LAB BLOOD ORDERABLES Final Result Performing Organization Address [facility] de Phone Number SMITA [facility] [address] [address] [employer]. [place] [address] * Vitamin B1 (06/09/2024 10:33 AM CDT) Pathologist [facility] Thiamine (Vit B1) 105 70 - 180 nmol/L [place] ref Lab Comment: ADDITIONAL INFORMATION This test was developed and its performance characteristics determined by [facility] in a manner consistent with CLIA requirements. This test has not been cleared or approved by the U.S. Food and Drug Administration. Test Performed by: [facility] [place] [address] Auto Seat Cover Installer: Abelino Cleveland Ph.D.; CLIA# [id number] Blood 06/09/2024 10:3 3 AM CDT 06/09/2024 11:17 AM CDT us Yodit Wareneil Shine SOLAR PANEL TECHNICIAN LAB BLOOD ORDERABLES Final Result Performing Organization Address [facility] Co de Phone Number SMITA [facility] [address] Department [employer] [place], [place] [phone] [place] ref Lab * (ABNORMAL) PTH (06/09/2024 10:33 AM CDT) PTH 84(H) 15 - 65 pg/mL Blood 06/09/2024 10:3 3 AM CDT 06/09/2024 11:18 AM CDT Yodit Shine NP LAB BLOOD ORDERABLES Final Result Performing Organization Address [facility] Phone Number [facility] [address] [facility] [place] [address] * Hemoglobin A1c (06/09/2024 10:33 AM CDT) Hgb A1C 5.3 4.0 - 5.6 % Estimated Average Glucose 105 mg/dL SMITA LYMAN Comment: The ADA recommends reporting an estimated Average Glucose (eAG) with all Hemoglobin A1c results using the equation derived from a study of 507 normal and diabetic adults. Minority populations were underrepresented and children were not included. (Diabetes Care 31:7655-6559, 2008). The eAG is not equivalent to a fasting glucose. Blood 06/09/2024 10:3 3 AM CDT 06/09/2024 11:18 AM CDT Yodit Shine NP LAB BLOOD ORDERABLES Final Result Performing Organization Address [facility] de Phone Number [facility] [address] [facility]. [place] [address] * Folate (06/09/2024 10:33 AM CDT) Folic acid 12.4 >=5.0 ng/mL Comment:Testing performed by : [facility], [facility] [facility], [place]., [address] Blood 06/09/2024 10:3 3 AM CDT 06/09/2024 12:16 PM CDT Yodit Shine NP LAB BLOOD ORDERABLES Final Result Performing Organization Address [facility]/ZIP Co de Phone Number SMITA R[facility]ING[facility] [address] [facility]. [facility] [place] [address] * Ferritin (06/09/2024 10:33 AM CDT) Pathologist [facility] Ferritin 90 15 - 150 ng/mL Comment:Testing performed by : [facility], [address] [place] [address]., [id number] Blood 06/09/2024 10:3 3 AM CDT 06/09/2024 12:16 PM CDT us Yodit Shine SOLAR PANEL TECHNICIAN LAB BLOOD ORDERABLES Final Result Performing Organization Address [facility] Co de Phone Number SMITA RUSHING[facility] [address] [facility]. [place] [address] * Vitamin B12 (06/09/2024 10:33 AM CDT) [facility] Vitamin B12 418 230 - 1,250 pg/mL Comment:Testing performed by : [facility], [address] [place] [address]., [id number] Blood 06/09/2024 10:3 3 AM CDT 06/09/2024 12:16 PM CDT us Yodit Shine SOLAR PANEL TECHNICIAN LAB BLOOD ORDERABLES Final Result Performing Organization Address [facility] Co de Phone Number SMITA RUSHING[facility] [address] [facility]. [facility] [place] [address] * Lipid panel (06/09/2024 10:33 AM CDT) Pathologist [facility] Cholesterol 194 30 - 199 mg/dL Comment: Interpretive Data Ages < or = 19 years Acceptable: <170 mg/dL Borderline high: 170-199 mg/dL High: >or= 200 mg/dL Ages > or = 20 years Desirable: <200 mg/dL Borderline high: 200-239 mg/dL High: >or= 240 mg/dL Literature References: 1. Expert Panel on Integrated Guidelines for Cardiovascular Health and Risk Reduction in Children and Adolescents. Pediatrics 2011;128:S213 2. NCEP Expert Panel. Circulation 2004;110:227 Current Interpretive Data was last revised on 2017. Triglycerides 101 <=149 mg/dL SMITA LYMAN Comment: Interpretive Data Ages < or = 9 years Acceptable: <75 mg/dL Borderline high: 75-99 mg/dL High: >or= 100 mg/dL Ages 10 to 20 years Acceptable: <90 mg/dL Borderline high: 90-129 mg/dL High: >or= 130 mg/dL Ages > or = 20 years Desirable: <150 mg/dL Borderline high: 150-199 mg/dL High: 200-499 mg/dL Very high: >or= 499 mg/dL Literature References: 1. Expert Panel on Integrated Guidelines for Cardiovascular Health and Risk Reduction in Children and Adolescents. Pediatrics 2011;128:S213 2. NCEP Expert Panel. Circulation 2004;110:227 Current Interpretive Data was last revised on 2017. HDL 80 >=40 mg/dL SMITA LYMAN Comment: Interpretive Data Ages < or = 19 years Acceptable: >45 mg/dL Borderline low: 40-45 mg/dL Low: <40 mg/dL Ages > or = 20 years Desirable: >or= 60 mg/dL Low: <40 mg/dL Literature References: 1. Expert Panel on Integrated Guidelines for Cardiovascular Health and Risk Reduction in Children and Adolescents. Pediatrics 2011;128:S213 2. NCEP Expert Panel. Circulation 2004;110:227 Current Interpretive Data was last revised on 2017. LDL, calculated 96 <=129 mg/dL SMITA LYMAN Comment: Interpretive Data Ages < or = 19 years Acceptable: <110 mg/dL Borderline high: 110-129 mg/dL High: >or= 130 mg/dL Ages > or = 20 years Optimal: <100 mg/dL Near optimal: 100-129 mg/dL Borderline high: 130-159 mg/dL High: >160 mg/dL Calculated using the Holly LDL-C estimating equation. This equation was implemented on 2023. Prior to this date LDL-C was estimated using the Friedewald equation. Literature References: 1. Expert Panel on Integrated Guidelines for Cardiovascular Health and Risk Reduction in Children and Adolescents. Pediatrics 2011;128:S213 2. NCEP Expert Panel. Circulation 2004;110:227 3. Avni M et al. ERMIAS Cardiol. 2020 June 11;5(5):540-548. doi: 10.1001/jamacardio.2020.0013 Current Interpretive Data was last revised on 2023. Non-HDL Cholesterol 114 mg/dL [facility] Comment: Interpretive Data Ages < or = 19 years Acceptable: <120 mg/dL Borderline high: 120-144 mg/dL High: >145 mg/dL Ages > or = 20 years When triglycerides are >200 mg/dL, Non-HDL cholesterol is a secondary target of therapy with treatment goals that are 30 mg/dL greater than the LDL cholesterol target. Literature References: 1. Expert Panel on Integrated Guidelines for Cardiovascular Health and Risk Reduction in Children and Adolescents. Pediatrics 2011;128:S213 2. NCEP Expert Panel. Circulation 2004;110:227 Current Interpretive Data was last revised on 2017. Chol/HDL ratio 2 [facility] Blood 06/09/2024 10:3 3 AM CDT 06/09/2024 11:18 AM CDT us Yodit Shine NP LAB BLOOD ORDERABLES Final Result [facility] [address] [facility]. [place] [address] * (ABNORMAL) Comprehensive metabolic panel (06/09/2024 10:33 AM CDT) Sodium 141 135 - 145 mmol/L Potassium, pl 4.6 3.3 - 4.9 mmol/L [facility] Chloride 105 97 - 110 mmol/L [facility] CO2 24 22 - 32 mmol/L [facility] Anion gap 12 2 - 15 mmol/L [facility] BUN 21 6 - 25 mg/dL [facility] Creatinine 1.18(H) 0.60 - 1.10 mg/dL [facility] Glucose 83 70 - 199 mg/dL [facility] Comment: Interpretive Data Fasting glucose >/= 126 mg/dl is diagnostic for diabetes. Fasting is defined as no caloric intake for at least 8 hours. Fasting glucose between 100 mg/dl to 125 mg/dl is diagnostic of prediabetes. In a patient with classic symptoms of hyperglycemia or hyperglycemic crisis, a random glucose >/= 200 mg/dl is diagnostic for diabetes. In the absence of unequivocal hyperglycemia, results should be confirmed by repeat testing. The classification and Diagnosis of Diabetes Diabetes Care 2021; 46: S19-S40. Current interpretive data was last revised 2022. Calcium 9.5 8.5 - 10.3 mg/dL [facility] Bilirubin, total 0.7 0.1 - 1.2 mg/dL [facility] Protein, pl 6.8 6.5 - 8.5 g/dL [facility] Albumin 3.9 3.5 - 5.0 g/dL [facility] Alk phos 57 40 - 130 Units/L [facility] ALT 9 7 - 45 Units/L [facility] AST 15 10 - 45 Units/L [facility] Blood 06/09/2024 10:3 3 AM CDT 06/09/2024 11:18 AM CDT us Yodit Shine NP LAB BLOOD ORDERABLES Final Result [facility]ITA [facility]INGW[facility] [address] [facility]. [place] [address] from Last 3 Months Insurance T MEDICARE AET MEDICARE Advance Directives For more information, please contact: [phone] * Full Code (Latest Code Status on File) Date Activated Date Inactivated Comments 08/23/2022 1:05 PM 08/23/2022 7:22 PM * Full Code Date Activated Date Inactivated Comments 07/25/2017 8:40 AM 07/25/2017 12:16 PM Care Teams Wet Primer Powder Blender Relationship Specialty Start Date End Date Nithin Mata DO PCP - General Internal Medicine 08/26/17
--- OUTSIDE RECORDS SUMMARY | 2024-06-13 16:02 | XMS_ITS | Clinical Summary ---
Author Organization [facility] Address [address] [place] [address] Care Team Providers Care Service Establishment Attendant Name Role Phone Nithin Mata DO Primary Care Provider [phone] Allergies No known active allergies Medications Prescription [...] A WEEK 4 mL 05/07/19 25 025 Discmariahi fela(The rapy complete d) Active Problems Problem Noted [...] phone. Assessment & Plan (01/02/2021 10:51 AM CREDIT RATING CHECKER): Discussed that significant health benefits/risk reduction may [...] RA. Assessment & Plan (01/07/2021 3:52 PM CREDIT RATING CHECKER): Labs. Reviewed available prior labs in chart and Care Everywhere. Recommended low-glycemic diet. Reviewed importance of adequate protein intake of 1-1.2 g/kg IBW/day. Hx of bariatric surgery 08/26/2017 Assessment & Plan (01/07/2021 3:54 PM CREDIT RATING CHECKER): Routine labs to evaluate for vitamin deficiencies in setting of intestinal malabsorption. Intestinal malabsorption 08/26/2017 Assessment & Plan (01/07/2021 3:54 PM CREDIT RATING CHECKER): Routine labs to evaluate for vitamin deficiencies in setting of intestinal malabsorption. Hypertension 08/26/2017 Assessment & Plan (01/07/2021 3:50 PM CREDIT RATING CHECKER): Reviewed role of diet, exercise, weight loss in controlling blood pressure. Recommended low sodium/DASH diet. GERD (gastroesophageal reflux disease) 8 Hyperlipidemia 08/26/2017 Assessment & Plan (01/07/2021 3:50 PM CREDIT RATING CHECKER): Discussed role of diet, exercise and weight [...] eating. Assessment & Plan (01/07/2021 3:53 PM CREDIT RATING CHECKER): Obesity is worsening. General weight loss/lifestyle modification strategies discussed (elicit support from others; identify saboteurs; non-food rewards, etc). Diet interventions: as noted. Informal exercise measures discussed, e.g. taking stairs instead of elevator. Regular aerobic exercise program discussed. More detailed recommendations pending review of labs, food record. Encounters Date Type Department Care Team Description 06/12/2024 Results Follow-Up [facility] [address] [facility] [address] [place] [address] Yodit Shine NP 06/09/2024 10:25 AM CDT Lab [facility] [address] [place] [address] BMI 29.0-29.9,adult; History of gastric bypass; Intestinal malabsorption, unspecified type; Other specified disorders of carbohydrate metabolism 06/09/2024 10:00 AM CDT Office Visit [facility] [address] [place] [address] Medical Office Building [address] [place] [phone] Yodit Shine NP BMI 29.0-29.9,adult (Primary Dx); Bariatric surgery status; History of gastric bypass; Intestinal malabsorption, unspecified type; Other specified disorders of carbohydrate metabolism from Last 3 Months Surgical History Surgery Date Site/Laterality Comments LAPAROSCOPIC GASTRIC BANDING Converted to Pauline-en-Y 2015 UPPER GASTROINTESTINAL ENDOSCOPY CHOLECYSTECTOMY GASTRIC BYPASS 05/13/2015 - 06/11/2015 band emoved at that time PAULINE-EN-Y PROCEDURE Medical History Medical History Date Comments Hypertension GERD (gastroesophageal reflux disease) Hyperlipidemia Intestinal malabsorption Family History Medical History Relation Name Comments Obesity Other Family history of obesity - Relation: Grandparent (Added by TW Conv) Obesity Sister Family history of obesity - (Added by TW Conv) Relation Name Status Comments Other Sister Social History Tobacco Use Types Packs/Day Years [...] on file Legal Sex Female 8:40 AM CREDIT RATING CHECKER Gender Identity Not on file Sexual Orientation Not on file Obstetrics History Last Filed Vital Signs Vital Sign Reading Time Taken Comments Blood Pressure 181/101 06/09/2024 9:34 AM CDT Pulse 61 12/24/2023 9:23 AM CREDIT RATING CHECKER Temperature 36.3 C (97.3 F) 08/23/2022 2:30 PM CDT Respiratory Rate 28 08/23/2022 3:01 PM CDT Oxygen Saturation 99% 12/24/2023 9:23 AM CREDIT RATING CHECKER Inhaled Oxygen Concentration - - Weight 69.8 kg (153 lb 12.8 oz) 06/09/2024 9:34 AM CDT Height 154.9 cm (5' 1 ) 06/09/2024 9:34 AM CDT Body Mass Index 29.06 06/09/2024 9:34 AM CDT Plan of Treatment Health Maintenance Due Date Last Done Comments Depression Screening 1945 Hepatitis C Screening 1945 Osteoporosis Screening-Bone Density Scan 1945 DTaP/Tdap/Td Vaccine (1 - Tdap) 09/21/1958 Hepatitis B Screening 09/21/1965 Well Visit 65+ 09/21/2012 Zoster Vaccine (2 of 2) 12/22/2018 10/27/2018 Fall Risk Assessment 08/24/2023 08/23/2022 Influenza Vaccine (Season Ended) 2024 10/28/19 19, 12/18/2017 Pneumococcal vaccine 65+ Completed 11/21/2018, 08/2017 Procedures Procedure Name Priority Date/Time Associated Diagnosis [...] * (ABNORMAL) eGFR (06/09/2024 10:33 AM CDT) [facility] eGFR 48(L) >=60 mL/min/1. 73 m2 Comment: [...] NP LAB BLOOD ORDERABLES Final Result [facility] [id number] [facility]. [place] [address] * Differential, auto (06/09/2024 10:33 AM CDT) Pathologist [facility] Neutrophil abs 4.96 1.50 - 6.50 K/cumm Imm gran abs 0.02 0.00 - 0.10 K/cumm [facility] Lymphocyte abs 1.56 0.80 - 3.30 K/cumm [facility] Monocyte abs 0.50 0.20 - 0.80 K/cumm [facility] Eosinophil abs 0.10 0.00 - 0.50 K/cumm [facility] Basophil abs 0.07 0.00 - 0.10 K/cumm [facility] Neutrophil pct 68.8 % [facility] Comment: Interpretive Data Percent cell count reference ranges are not reported, since discordance with absolute values may lead to misinterpretation of CBC data. Current Interpretive Data was last revised on 2017. Imm gran pct 0.3 % [facility] Comment: Interpretive Data Percent cell count reference ranges are not reported, since discordance with absolute values may lead to misinterpretation of CBC data. Current Interpretive Data was last revised on 2017. Lymphocyte pct 21.6 % [facility] Comment: Interpretive Data Percent cell count reference ranges are not reported, since discordance with absolute values may lead to misinterpretation of CBC data. Current Interpretive Data was last revised on 2017. Monocyte pct 6.9 % [facility] Comment: Interpretive Data Percent cell count reference ranges are not reported, since discordance with absolute values may lead to misinterpretation of CBC data. Current Interpretive Data was last revised on 2017. Eosinophil pct 1.4 % [facility] Comment: Interpretive Data Percent [...] 06/09/2024 11:18 AM CDT us Yodit Shine KICK PLATE INSTALLER LAB BLOOD ORDERABLES Final Result [facility] [address] [facility]. [place] [address] * Iron profile w/ IBC (06/09/2024 10:33 AM CDT) Iron 122 35 - 145 mcg/dL Comment:Testing performed by : [facility], [facility] [facility], [place]., [address] TIBC 331 250 - 400 mcg/dL [facility] Comment:Testing performed by : [facility], [address] [place] [address]., [address] Transferrin saturation 37 20 - 50 % [facility] Comment:Testing performed by : [facility], [address] [place] [address]., [id number] Blood 06/09/2024 10:3 3 AM CDT 06/09/2024 12:16 PM CDT us Yodit Shine NP LAB BLOOD ORDERABLES Final Result Performing Organization Address [facility] de Phone Number [facility] [address] [facility] [place] [address] * (ABNORMAL) CBC with auto differential (06/09/2024 10:33 AM CDT) WBC 7.21 3.80 - 9.90 K/cumm Hgb 15.0 11.9 - 15.5 g/dL [facility] Hct 45.6(H) 35.6 - 45.5 % [facility] Plt 223 150 - 400 K/cumm [facility] MPV 10.0 9.1 - 12.3 fL [facility] RBC 4.74 3.90 - 5.20 M/cumm [facility] MCV 96.2 81.3 - 96.4 fL [facility] MCH 31.6 27.1 - 33.3 pg [facility] MCHC 32.9 32.3 - 35.7 g/dL [facility] RDW CV 12.8 11.1 - 14.9 % [facility] RDW SD 45.4 35.7 - 48.1 fL [facility] NRBC abs 0.00 0.00 - 0.01 K/cumm [facility] Blood 06/09/2024 10:3 3 AM CDT 06/09/2024 11:18 AM CDT us Yodit Shine NP LAB BLOOD ORDERABLES Final Result Performing Organization Address [facility]/ZIP Co de Phone Number [facility] [address] [address] [facility] [place] [address] * Copper, serum (06/09/2024 10:33 AM CDT) Copper 96 77 - 206 mcg/dL Vu ref Lab Comment: ADDITIONAL INFORMATION This test was developed and its performance characteristics determined by [facility] in a manner consistent with CLIA requirements. This test has not been cleared or approved by the U.S. Food and Drug Administration. Test Performed by: [facility] [place] [address] Packing Machine Pilot Can Router: Abelino Cleveland Ph.D.; CLIA# [id number] Blood 06/09/2024 10:3 3 AM CDT 06/09/2024 11:18 AM CDT us Yodit Shine KICK PLATE INSTALLER LAB BLOOD ORDERABLES Final Result Performing Organization Address [facility] de Phone Number [facility] [address] [address] [facility] [place] [address] [facility] Lab * Vitamin D 25 hydroxy (06/09/2024 10:33 AM CDT) Vitamin D 25-OH 43 30 - 80 ng/mL Blood 06/09/2024 10:3 3 AM CDT 06/09/2024 11:18 AM CDT Yodit Shine KICK PLATE INSTALLER LAB BLOOD ORDERABLES Final Result Performing Organization Address [facility] Co de Phone Number [facility] [address] [address] [facility]. [facility] [place] [address] * Vitamin B1 (06/09/2024 10:33 AM CDT) Thiamine (Vit B1) 105 70 - 180 nmol/L Vu ref Lab Comment: ADDITIONAL INFORMATION This test was developed and its performance characteristics determined by [facility] in a manner consistent with CLIA requirements. This test has not been cleared or approved by the U.S. Food and Drug Administration. Test Performed by: [facility] [address] [place] [address] Packing Machine Pilot Can Router: Abelino Cleveland Ph.D.; CLIA# [id number] Blood 06/09/2024 10:3 3 AM CDT 06/09/2024 11:17 AM CDT Yodit Shine NP LAB BLOOD ORDERABLES Final Result Performing Organization Address [facility] de Phone Number [facility] [address] [address] [place] [address] [place] ref Lab * (ABNORMAL) PTH (06/09/2024 10:33 AM CDT) PTH 84(H) 15 - 65 pg/mL Blood 06/09/2024 10:3 3 AM CDT 06/09/2024 11:18 AM CDT Yodit Shine NP LAB BLOOD ORDERABLES Final Result Performing Organization Address [facility] de Phone Number [facility] [address] [address]. [facility] [place] [address] * Hemoglobin A1c (06/09/2024 10:33 AM CDT) Hgb A1C 5.3 4.0 - 5.6 % Estimated Average Glucose 105 mg/dL [facility] Comment: The ADA recommends reporting an estimated Average Glucose (eAG) with all Hemoglobin A1c results using the equation derived from a study of 507 normal and diabetic adults. Minority populations were underrepresented and children were not included. (Diabetes Care 31:8011-3918, 2008). The eAG is not equivalent to a fasting glucose. Blood 06/09/2024 10:3 3 AM CDT 06/09/2024 11:18 AM CDT Yodit Shine NP LAB BLOOD ORDERABLES Final Result [facility] [address] [facility] [place] [address] * Folate (06/09/2024 10:33 AM CDT) Pathologist [facility] Folic acid 12.4 >=5.0 ng/mL Comment:Testing performed by : [facility], [address] [place] [address]., [address] Blood 06/09/2024 10:3 3 AM CDT 06/09/2024 12:16 PM CDT Yodit Shine NP LAB BLOOD ORDERABLES Final Result Performing Organization Address [facility] Co de Phone Number [facility] [address] [facility] [place] [address] * Ferritin (06/09/2024 10:33 AM CDT) [facility] Ferritin 90 15 - 150 ng/mL Comment:Testing performed by : [facility], [address] [place] [address]., [address] Blood 06/09/2024 10:3 3 AM CDT 06/09/2024 12:16 PM CDT Yodit Shine NP LAB BLOOD ORDERABLES Final Result [facility] [address] [facility] [place] [address] * Vitamin B12 (06/09/2024 10:33 AM CDT) [facility] Vitamin B12 418 230 - 1,250 pg/mL Comment:Testing performed by : [facility], [facility] [facility], [place]., [address] Blood 06/09/2024 10:3 3 AM CDT 06/09/2024 12:16 PM CDT us Yoditskinny Lomax Rl GOMEZ LAB BLOOD ORDERABLES Final Result [facility] [address] [facility]. [place] [address] * Lipid panel (06/09/2024 10:33 AM CDT) Cholesterol 194 30 - 199 mg/dL Comment: [...] mg/dL High: >160 mg/dL Calculated using the Avni LDL-C estimating equation. This equation was implemented on 2023. Prior to this date LDL-C was estimated using the Friedewald equation. Literature References: 1. Expert Panel on Integrated Guidelines for Cardiovascular Health and Risk Reduction in Children and Adolescents. Pediatrics 2011;128:S213 2. NCEP Expert Panel. Circulation 2004;110:227 3. Avni M et al. ERMIAS Cardiol. 2019June 11;5(5):540-548. doi: 10.1001/jamacardio.2020.0013 Current Interpretive Data was last revised on 2023. Non-HDL Cholesterol 114 mg/dL [facility] Comment: Interpretive Data Ages < or [...] last revised on 2017. Chol/HDL ratio 2 [facility] Blood 06/09/2024 10:3 3 AM CDT 06/09/2024 11:18 AM CDT us Yodit Shine NP LAB BLOOD ORDERABLES Final Result [facility] [address] [place] [facility]. [place] [address] * (ABNORMAL) Comprehensive metabolic panel (06/09/2024 10:33 AM CDT) Sodium 141 135 - 145 mmol/L Potassium, pl 4.6 3.3 - 4.9 mmol/L [facility] Chloride 105 97 - 110 mmol/L [facility] CO2 24 22 - 32 mmol/L [facility] Anion gap 12 2 - 15 mmol/L [facility] BUN 21 6 - 25 mg/dL [facility] Creatinine 1.18(H) 0.60 - 1.10 mg/dL [facility] Glucose 83 70 - 199 mg/dL [facility] Comment: Interpretive Data Fasting glucose >/= 126 [...] Shine NP LAB BLOOD ORDERABLES Final Result [facility] [address] [facility]. [place] [address] from Last 3 Months Insurance T MEDICARE T MEDICARE Advance Directives For more information, please contact: [phone] * Full Code (Latest Code Status on File) Date Activated Date Inactivated Comments 08/23/2022 1:05 PM 08/23/2022 7:22 PM * Full Code Date Activated Date Inactivated Comments 07/25/2017 8:40 AM 07/25/2017 12:16 PM Care Teams Service Establishment Attendant Relationship Specialty Start Date End Date Nithin Mata DO PCP - General Internal Medicine 08/26/17
--- OUTSIDE RECORDS SUMMARY | 2024-06-13 16:02 | XMS_ITS | Continuity of Care Document ---
Author Organization [facility] Address [address] [place] [address] Phone Care Team Providers Care Chief I Dispatcher Name Role Phone Interface, HMaint Import Unavailable Unavail able Medications Medication Instructions Dosage Effective Dates (start - stop) Status Comments No Drug Therapy Prescribed Advance Directives Directive Yes / No Effective Date File Name No Information Encounters Encounter Description Practice Location Reason(s) For Visit Diagnoses Date Provider Providers Copied on Encounter [facility], [address] [place] [address], [address], [place] tel:[phone] [facility] No Information Interface HMaint Import. [...]
== END 2024-06-13 09:11 | disposition home or self-care (01) ==
PROVIDERS: Visit Provider Nurse Practitioner
DX: E78.5 Hyperlipidemia, unspecified (principal); E55.9 Vitamin D deficiency, unspecified; E53.8 Deficiency of other specified B group vitamins
CPT/HCPCS: 36415; 80053; 80061; 82306; 82607

== ENCOUNTER 2024-10-04 09:07 | Emergency (ER) | payer MEDICARE, SELFPAY ==
--- OUTSIDE RECORDS SUMMARY | 2022-03-15 18:59 | XMS_ITS | Continuity of Care Document ---
Author Organization [facility] Address [address] [place] [address] Phone Care Team Providers Care Stars Analytical Lead Name Role Phone Interface, HMaint Import Unavailable Unavail able Medications Medication Instructions Dosage Effective Dates (start - stop) Status Comments No Drug Therapy Prescribed Advance Directives Directive Yes / No Effective Date File Name No Information Encounters Encounter Description Practice Location Reason(s) For Visit Diagnoses Date Provider Providers Copied on Encounter [facility], [address] [place] [address], [address], [place] tel:[phone] [facility] No Information Interface HMaint Import. . Family History Family Member Type Diagnosis Age At Onset No Information Payers Payer name Insurance type Covered libertarian ID Authoriza tion(s) No Information Social History Type Description Quantity Date Captured Comments Sex Female Smoking Status No Information Chief Complaint And Reason For Visit No Information History Of Present Illness Encounter Date Complaint History Of Prese nt Illness No Information Medications Administered Medication Instructions Dosage Effective Dates (start - stop) Status Comments No Drug Therapy Prescribed Instructions Date Instruction Additional Infor mation No Information Assessments Type Assessment Date No Information
--- NOTE | ~2024-10-04 | US_ITS ---
EXAMINATION:US venous doppler LE RT INDICATION:Nontraumatic leg pain TECHNIQUE: Multiple grayscale, color flow and Doppler images of the right lower extremity deep venous systems were obtained and reviewed. COMPARISON:No prior studies for comparison. FINDINGS: The common femoral, superficial femoral and popliteal veins demonstrate normal respiratory variation, augmentation and compressibility. Color flow is also seen within the posterior tibial, peroneal, and profunda veins. There is superficial venous thrombosis of the greater saphenous vein. IMPRESSION: 1: No lower extremity deep venous thrombosis. 2: Superficial venous thrombosis of the greater saphenous vein. Reviewed, dictated and finalized at location O.
[2024-10-04 09:14] VITALS: BP 181/91; PULSE 74; RESP 15; TEMP 36.4; O2SAT 99
--- NOTE | 2024-10-04 09:40 | ED.EXTPRO ---
HPI - Extremity Problem General Chief complaint: Extremity Problem,Nontraumatic Stated complaint: R LOWER LEG PAIN Time Seen by Provider: 10/04/24 09:36 Source: patient Mode of arrival: ambulatory Limitations: no limitations History of Present Illness HPI Narrative: 79 years old white female came from home with her in a private car complaining of right lower leg pain for 1 week. She denies any trauma, new physical activities, lung driving or lung sleeping or recent surgery. Pain at the right lower leg anteriorly medially sharp stabbing. She denies aggravating or relieving factors Related Data Home Medications ?Medication ?Instructions ?Recorded ?Confirmed ?Last Taken ?Type semaglutide (weight loss) 1.7 1.7 mg subcut WEEKLY 12/27/23 06/18/24 Unknown History mg/0.75 mL subcutaneous pen injector (Wegovy) Allergies Allergy/AdvReac Type Severity Reaction Status Date / Time No Known Allergies Allergy Verified 10/04/24 09:18 Review of Systems Review of Systems: All systems reviewed & are unremarkable except as noted in HPI and below PMFSH Past Medical History Medical History Rosacea Colon cancer screening History of osteoporosis Broken arm (~2019) right broken arm History of varicose veins surgery [id number] Vitamin B12 deficiency Postmenopausal Screening for breast cancer Obesity History of gastroesophageal reflux (GERD) Surgical History Surgical History History of elbow surgery (~2019) History of varicose vein ligation and stripping (~2008) History of varicose vein ligation and stripping (~2006) Hx of laparoscopic gastric banding (~2009) History of adenoidectomy History of tubal ligation (~1981) History of cholecystectomy (~1970) History of gastric bypass (~2015) Revision History of tonsillectomy Family History Family History Mother Osteoporosis Hip joint replacement status Other Diabetes mellitus Social History Social History Smoking packs per day: 1 Smoking cigarettes per day: 20.0 Years smoked: 30 Smoking pack-years: 30.00 Smoking status: Former smoker Tobacco type: cigarettes Smoking end date: 02/11/99 Additional smoking assessment comments: 1PK/DAY/34YRS - QUIT 1998 Alcohol intake: never Alcohol use details: occasionally Substance use: never Substance use type: does not use Do You Feel Safe in your Home?: Yes Lack of Transportation: No Lack of Food: Never True Current Housing: I Have Housing Concerned About Future Housing: No Difficulty Paying Gas/Electric Bills: No Difficulty Paying for Meds: No Currently Unemployed: No Education: Trade/Vocational Certificate Difficulty w/ Childcare or Family Care: No Living arrangements: with family Gender identity (if verbalized by the patient): Female Spiritual care concerns: No Exam Narrative: General appearance: Well-developed, well-nourished Skin: Normal color Head: Normocephalic, nontraumatic Eyes: Clear conjunctiva ENT: Oropharynx normal, ears normal, nose normal Neck: Supple, nontender Chest and respiratory: Airway patent, no respiratory distress, no accessory muscle use Heart: Regular rate/rhythm Abdomen: Soft, nontender, no organomegaly, quiet bowel sounds Vascular: Normal peripheral pulses, normal capillary refill. Musculoskeletal: Lower extremity exam showed extensive varicose veins bilaterally, right lower leg showed apple like feeling, tenderness anterior medially. No bruises, no swelling, it is soft nontender calf muscle. Neurologic: Alert and oriented ?3, MANAGER PRIVACY is normal as tested, no gross motor deficit Course Vital Signs Vital signs: Vital Signs Temperature 36.4 C L 10/04/24 09:14 Pulse Rate 74 10/04/24 09:14 Respiratory Rate 15 10/04/24 09:14 Blood Pressure 181/91 H 10/04/24 09:14 Pulse Oximetry 99 10/04/24 09:14 Oxygen Delivery Room Air 10/04/24 09:14 Temperature 36.4 C L 10/04/24 09:14 Pulse Rate 74 10/04/24 09:14 Respiratory Rate 15 10/04/24 09:14 Blood Pressure 181/91 H 10/04/24 09:14 Pulse Oximetry 99 10/04/24 09:14 Oxygen Delivery Room Air 10/04/24 09:14 MDM - Extremity (Nontraumatic) MDM Narrative Medical decision making narrative: Patient presents with right lower leg pain Physical examination showing extensive varicose veins bilaterally Differential diagnose superficial thrombophlebitis, less likely deep vein thrombosis Venous Doppler of the right lower extremity showed superficial thrombophlebitis, no deep vein thrombosis The pt was discharged to home.the pt,s condition upon discharge was fair,education was provided to the pt in reference to the final impression,discharge study results,treatment,prognosis and need for follow up ., ibuprofen as needed, warm compresses, stocking, elevation Differential Diagnosis Differential diagnosis: Likely superficial thrombophlebitis and deep vein thrombosis of lower extremity Medical Records Attestation: I reviewed the patient's medical records. Critical Care Time Critical Care Time Critical Care Time: No Discharge Plan Discharge Clinical Impression: Superficial thrombophlebitis Patient Disposition: Home Condition: Stable Instructions: Superficial Thrombophlebitis (ED) Additional Instructions: Return if symptoms are worsening , call your family physician for appointment, take Tylenol, ibuprofen as as needed for aches and pain, continue home medications. Leg elevation, warm compresses, compression stocking, Patient Language: Salvadorean Prescriptions: No Action Wegovy 1.7 mg/0.75 mL pen injector 1.7 mg subcut WEEKLY Rx Instructions: administer weeks 13 through 16 of therapy Prolia 60 mg/mL syringe 60 mg subcut [id number] Qty: 1 1RF trazodone 50 mg tablet 50 mg PO QHS PRN (Reason: sleep) Qty: 30 5RF Follow-up/Referrals: Fortino Forbes APRN [Primary Care Provider, Internal Medicine]
--- OUTSIDE RECORDS SUMMARY | 2024-10-04 09:45 | XMS_ITS | Clinical Summary ---
Author Organization [facility] Address [address] [place] [address] Care Team Providers Care Racing Driver Name Role Phone Nithin Mata DO Primary Care Provider [phone] Allergies No known active allergies Medications Prescription [...] hours as needed for nausea 20 tablet 11/04/19 24 Active Wegovy 2.4 mg/0.75 mL auto-injectorIndi cations:BMI 32.0-32.9,adult,P ure hypercholesterole tulio,Metabolic and nutritional disorder,Primary hypertension INJECT 2.4MG SUBCUTANEOUSLY ONCE EVERY 7 DAYS 4 mL 09/17/19 25 Active Wegovy 2.4 mg/0.75 mL auto-injectorIndi cations:BMI 32.0-32.9,adult,P ure hypercholesterole tulio,Metabolic and nutritional disorder,Primary hypertension INJECT 2.4MG SUBCUTANEOUSLY ONCE EVERY 7 DAYS 4 mL 08/19/19 25 Alysha chahal(Reo rder) Active Problems Problem Noted Date Diagnosed Date [...] phone. Assessment & Plan (01/02/2021 10:51 AM DECAY CONTROL OPERATOR): Discussed that significant health benefits/risk reduction may [...] RA. Assessment & Plan (01/07/2021 3:52 PM DECAY CONTROL OPERATOR): Labs. Reviewed available prior labs in chart and Care Everywhere. Recommended low-glycemic diet. Reviewed importance of adequate protein intake of 1-1.2 g/kg IBW/day. Hx of bariatric surgery 08/26/2017 Assessment & Plan (01/07/2021 3:54 PM DECAY CONTROL OPERATOR): Routine labs to evaluate for vitamin deficiencies in setting of intestinal malabsorption. Intestinal malabsorption 08/26/2017 Assessment & Plan (01/07/2021 3:54 PM DECAY CONTROL OPERATOR): Routine labs to evaluate for vitamin deficiencies in setting of intestinal malabsorption. Hypertension 08/26/2017 Assessment & Plan (01/07/2021 3:50 PM DECAY CONTROL OPERATOR): Reviewed role of diet, exercise, weight loss in controlling blood pressure. Recommended low sodium/DASH diet. GERD (gastroesophageal reflux disease) 8 Hyperlipidemia 08/26/2017 Assessment & Plan (01/07/2021 3:50 PM DECAY CONTROL OPERATOR): Discussed role of diet, exercise and weight [...] eating. Assessment & Plan (01/07/2021 3:53 PM DECAY CONTROL OPERATOR): Obesity is worsening. General weight loss/lifestyle modification strategies discussed (elicit support from others; identify saboteurs; non-food rewards, etc). Diet interventions: as noted. Informal exercise measures discussed, e.g. taking stairs instead of elevator. Regular aerobic exercise program discussed. More detailed recommendations pending review of labs, food record. Surgical History Surgery Date Site/Laterality Comments LAPAROSCOPIC [...] on file Legal Sex Female 8:40 AM DECAY CONTROL OPERATOR Gender Identity Not on file Sexual Orientation Not on file Obstetrics History Last Filed Vital Signs Vital Sign Reading Time Taken Comments Blood Pressure 181/101 06/09/2024 9:34 AM CDT Pulse 61 12/24/2023 9:23 AM DECAY CONTROL OPERATOR Temperature 36.3 C (97.3 F) 08/23/2022 2:30 PM CDT Respiratory Rate 28 08/23/2022 3:01 PM CDT Oxygen Saturation 99% 12/24/2023 9:23 AM DECAY CONTROL OPERATOR Inhaled Oxygen Concentration - - Weight 69.8 kg (153 lb 12.8 oz) 06/09/2024 9:34 AM CDT Height 154.9 cm (5' 1) 06/09/2024 9:34 AM CDT Body Mass Index 29.06 06/09/2024 9:34 AM CDT Plan of Treatment Health Maintenance Due Date Last Done Comments Depression Screening 1945 Hepatitis C Screening 1945 Osteoporosis Screening-Bone Density Scan 1945 DTaP/Tdap/Td Vaccine (1 - Tdap) 09/21/1958 Hepatitis B Screening 09/21/1965 Well Visit 65+ 09/21/2012 Zoster Vaccine (2 of 2) 12/22/2018 10/27/2018 Fall Risk Assessment 08/24/2023 08/23/2022 Influenza Vaccine (#1) 2024 10/27/2018, 2017 Pneumococcal vaccine 65+ Completed 11/21/2018, 08/2017 Insurance COUNT INCLUDES THE [facility] MEDICARE T MEDICARE Advance Directives For more information, please contact: [phone] * Full Code (Latest Code Status on File) Date Activated Date Inactivated Comments 08/23/2022 1:05 PM 08/23/2022 7:22 PM * Full Code Date Activated Date Inactivated Comments 07/25/2017 8:40 AM 07/25/2017 12:16 PM Care Teams Racing Driver Relationship Specialty Start Date End Date Nithin Mata DO PCP - General Internal Medicine 08/26/17
--- OUTSIDE RECORDS SUMMARY | 2024-10-04 09:45 | XMS_ITS | Encounter Summary ---
Author Organization [facility] Address [address] [place] [address] Phone Care Team Providers Care Retail Wireless Associate Name Role Phone Nithin Mata DO Primary Care Provider [phone] Encounter Details Date Type Department Care Team [...] on file Legal Sex Female 8:40 AM SHOT HOLE DRILLER Gender Identity Not on file Sexual Orientation [...] on filedocumented in this encounter Care Teams Retail Wireless Associate Relationship Specialty Start Date End Date Nithin Mata DO PCP - General Internal Medicine 08/26/17 documented as of this encounter
--- OUTSIDE RECORDS SUMMARY | 2024-10-04 09:45 | XMS_ITS | Clinical Summary ---
Author Organization [facility] Address [address] [place] [id number] Care Team Providers Care Carbon Grinder Name Role Phone Unavailable Primary Care Provider [...]
[2024-10-04 11:17] VITALS: BP 184/77; PULSE 68; RESP 15; TEMP 36.5; O2SAT 99
== END 2024-10-04 11:18 | disposition home or self-care (01) ==
PROVIDERS: Emergency Provider Emergency Medicine; PCP Nurse Practitioner
DX: I80.01 Phlebitis and thrombophlebitis of superficial vessels of right lower extremity (principal); E53.8 Deficiency of other specified B group vitamins; K21.9 Gastro-esophageal reflux disease without esophagitis; M81.0 Age-related osteoporosis without current pathological fracture; Z98.84 Bariatric surgery status; Z87.891 Personal history of nicotine dependence; Z90.49 Acquired absence of other specified parts of digestive tract
CPT/HCPCS: 93971; 99284

== ENCOUNTER 2024-10-22 07:53 | Outpatient (CLI) | payer MEDICARE, SELFPAY ==
--- OUTSIDE RECORDS SUMMARY | 2022-03-15 18:59 | XMS_ITS | Continuity of Care Document ---
Author Organization [facility] Address [address] [place] [address] Phone Care Team Providers Care Direct Mail Coordinator Name Role Phone Interface, HMaint Import Unavailable Unavail able Medications Medication Instructions Dosage Effective Dates (start - stop) Status Comments No Drug Therapy Prescribed Advance Directives Directive Yes / No Effective Date File Name No Information Encounters Encounter Description Practice Location Reason(s) For Visit Diagnoses Date Provider Providers Copied on Encounter [facility], [address] [place] [address], [address], [place] tel:[phone] [facility] No Information Interface HMaint Import. . Family History Family Member Type Diagnosis Age At Onset No Information Payers Payer name Insurance type Covered alliance party ID Authoriza tion(s) No Information Social History [...]
--- NOTE | ~2024-10-22 | DEXA_ITS ---
Bone Density Report Name: GAETANO CORRAL Age: 79 Sex: Female Ethnicity: White Date of : 1945 Indication: osteopenia; monitoring treatment; parental hip fracture; height loss; prior fracture; Referring Provider: CARI WATKINS Study: Bone densitometry was performed. Exam Date: October 22, 2024 Accession number: [id number] Bone Density: Region BMD T-score Z-score Classification AP Spine(L1-L4) 0.969 -0.7 1.8 Normal Femoral Neck (Left) 0.689 -1.4 0.7 Osteopenia Total Hip (Left) 0.815 -1.0 0.9 Normal Femoral Neck (Right) 0.591 -2.3 -0.2 Osteopenia Total Hip (Right) 0.723 -1.8 0.1 Osteopenia Total Hip Mean 0.769 -1.4 0.5 Osteopenia World Health Organization criteria for BMD impression classify patients as: Normal (T-score at or above -1.0), Osteopenia (T-score between -1.0 and -2.5), or Osteoporosis (T-score at or below -2.5). 10-year Fracture Risk: FRAX not reported because: Treated for osteoporosis Previous Exams: Region Exam Age BMD T-score BMD Change BMD Change Date g/cm2 vs Baseline vs Previous AP Spine (L1-L4) 10/22/2024 79 0.969 -0.7 0.079 (8.8%)* 0.073 (8.2%)* 08/29/2022 76 0.896 -1.4 0.005 (0.6%) -0.013 (-1.4%) 06/24/2020 74 0.908 -1.3 0.018 (2.0%) -0.013 (-1.4%) 02/24/2018 72 0.922 -1.1 0.031 (3.5%)* 0.031 (3.5%)* 01/16/2016 70 0.890 -1.4 Total Hip(Left) 10/22/2024 79 0.815 -1.0 -0.028 (-3.3%) 0.006 (0.7%) 08/29/2022 76 0.809 -1.1 -0.034 (-4.0%) 0.007 (0.8%) 06/24/2020 74 0.803 -1.1 -0.040 (-4.8%) -0.050 (-5.9%) 02/24/2018 72 0.853 -0.7 0.010 (1.2%) 0.010 (1.2%) 01/16/2016 70 0.843 -0.8 Total Hip(Right) 10/22/2024 79 0.723 -1.8 -0.017 (-2.3%) 0.002 (0.3%) 08/29/2022 76 0.721 -1.8 -0.019 (-2.6%) -0.017 (-2.3%) 06/24/2020 74 0.738 -1.7 -0.002 (-0.2%) -0.029 (-3.8%) 02/24/2018 72 0.768 -1.4 0.027 (3.7%)* 0.027 (3.7%)* 01/16/2016 70 0.740 -1.7 *Denotes significance at 95% confidence level, LSC for AP Spine = 0.022 g/cm2, LSC for Total Hip = 0.027 g/cm2 Clinical Information Provided by Patient: Has had a low trauma fracture Parent has had a hip fracture Is being treated for osteoporosis Has used the following medications: Prolia (i.e. denosumab), Vitamin D, Calcium Patient maximum height was 63 Menopause Age: 53 No regular weight bearing exercise Drinks caffeinated beverages Onset of menses at age 13 Number of children 2 Impression: The patient has low bone mass, based on the Right Femoral Neck T-score. The patient has risk factors, including: parental hip fracture, previous fracture. No significant bone loss was observed. Discussion: PATIENT UNDER TREATMENT WITH NO SIGNIFICANT BMD LOSS SINCE LAST EXAM. In an untreated patient, BMD typically declines with age. A lack of decline or gain is usually a sign that treatment is efficacious and fracture risk is reduced. It is important to ask patients whether they are taking their medications and to encourage continued and appropriate compliance with their osteoporosis therapies to reduce fracture risk. It is also important to review their risk factors and encourage appropriate calcium and vitamin D intakes, exercise, fall prevention and other lifestyle measures. Follow-Up: Consider a repeat BMD and Vertebral Fracture Assessment (VFA) exam in 2 years or sooner if medically necessary, to reassess this patient's status. Reported by: SARMAD on 10/22/2024 8:37:00 AM. Reviewed, dictated and finalized at location A.
--- OUTSIDE RECORDS SUMMARY | 2024-10-22 08:18 | XMS_ITS | Clinical Summary ---
Author Organization [facility] Address [address] [place] [address] Care Team Providers Care Body And Fender Mechanic Name Role Phone Unavailable Primary Care Provider [...] series) 09/21/2022 COVID-19 Vaccine (2023-2 5 season) 2024 Meningococcal B Vaccine Aged Out No l onger eligible based on patient's age to complete this topic Meningococcal Vaccine Aged Out No natan ruben eligible based on patient's age to complete this topic RSV Immunizations Under 20 Months Aged Out No longer eligible based on patient's age to complete this topic
--- OUTSIDE RECORDS SUMMARY | 2024-10-22 08:18 | XMS_ITS | Encounter Summary ---
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
--- OUTSIDE RECORDS SUMMARY | 2024-10-22 08:18 | XMS_ITS | Clinical Summary ---
Author Organization [facility] Address [address] [place] [address] Care Team Providers Care Electrical Instrument Repairer Name Role Phone Nithin Mata DO Primary Care Provider [phone] Allergies No known active allergies Medications Prescription Drug name: biotin Dose: 1 tab. Route: po Frequency: daily Duration: Active Prescription Drug name: Chewable MVI Dose:1 tab. Route: po Frequency:daily Duration: Active clobetasoL (TEMOVATE) 0.05 % cream APPLY CREAM TOPICALLY TO AFFECTED AREA TWICE DAILY UNTIL CLEAR THEN ONCE A WEEK 022 Active PreviDent 5000 Booster Plus 1.1 % paste BRUSH ON TEETH AND HOLD IN MOUTH, THEN SPIT. DO NOT RINSE. 023 Active ondansetron ODT (ZOFRAN-ODT) 4 mg disintegrating tablet Take 1 tablet (4 mg total) by mouth every 8 (eight) hours as needed for nausea 20 tablet 11 024 Active Wegovy 2.4 mg/0.75 mL auto-injectorIndi cations:BMI 32.0-32.9,adult,P ure hypercholesterole tulio,Metabolic and nutritional disorder,Primary hypertension INJECT 2.4MG SUBCUTANEOUSLY ONCE EVERY 7 DAYS 3 mL 1 025 Active Wegovy 2.4 mg/0.75 mL auto-injectorIndi cations:BMI 32.0-32.9,adult,P ure hypercholesterole tulio,Metabolic and nutritional disorder,Primary hypertension INJECT 2.4MG SUBCUTANEOUSLY ONCE EVERY 7 DAYS 4 mL 025 2024 Discontinued Active Problems Problem Noted Date Diagnosed Date [...] phone. Assessment & Plan (01/02/2021 10:51 AM SOFTWARE DEVELOPER CONSULTANT): Discussed that significant health benefits/risk reduction may [...] RA. Assessment & Plan (01/07/2021 3:52 PM SOFTWARE DEVELOPER CONSULTANT): Labs. Reviewed available prior labs in chart and Care Everywhere. Recommended low-glycemic diet. Reviewed importance of adequate protein intake of 1-1.2 g/kg IBW/day. Hx of bariatric surgery 08/26/2017 Assessment & Plan (01/07/2021 3:54 PM SOFTWARE DEVELOPER CONSULTANT): Routine labs to evaluate for vitamin deficiencies in setting of intestinal malabsorption. Intestinal malabsorption 08/26/2017 Assessment & Plan (01/07/2021 3:54 PM SOFTWARE DEVELOPER CONSULTANT): Routine labs to evaluate for vitamin deficiencies in setting of intestinal malabsorption. Hypertension 08/26/2017 Assessment & Plan (01/07/2021 3:50 PM SOFTWARE DEVELOPER CONSULTANT): Reviewed role of diet, exercise, weight loss in controlling blood pressure. Recommended low sodium/DASH diet. GERD (gastroesophageal reflux disease) 8 Hyperlipidemia 08/26/2017 Assessment & Plan (01/07/2021 3:50 PM SOFTWARE DEVELOPER CONSULTANT): Discussed role of diet, exercise and weight [...] eating. Assessment & Plan (01/07/2021 3:53 PM SOFTWARE DEVELOPER CONSULTANT): Obesity is worsening. General weight loss/lifestyle modification [...] on file Legal Sex Female 8:40 AM SOFTWARE DEVELOPER CONSULTANT Gender Identity Not on file Sexual Orientation Not on file Obstetrics History Last Filed Vital Signs Vital Sign Reading Time Taken Comments Blood Pressure 181/101 06/09/2024 9:34 AM CDT Pulse 61 12/24/2023 9:23 AM SOFTWARE DEVELOPER CONSULTANT Temperature 36.3 C (97.3 F) 08/23/2022 2:30 PM CDT Respiratory Rate 28 08/23/2022 3:01 PM CDT Oxygen Saturation 99% 12/24/2023 9:23 AM SOFTWARE DEVELOPER CONSULTANT Inhaled Oxygen Concentration - - Weight 69.8 [...] Pneumococcal vaccine 65+ Completed 11/21/2018, 08/2017 Insurance [employer] MEDICARE T MEDICARE Advance Directives For more information, please contact: [phone] * Full Code (Latest Code Status on File) Date Activated Date Inactivated Comments 08/23/2022 1:05 PM 08/23/2022 7:22 PM * Full Code Date Activated Date Inactivated Comments 07/25/2017 8:40 AM 07/25/2017 12:16 PM Care Teams Electrical Instrument Repairer Relationship Specialty Start Date End Date Nithin Mata DO PCP - General Internal Medicine 08/26/17
== END 2024-10-22 07:54 | disposition home or self-care (01) ==
LOC: ANHFOHIMG 07:57
PROVIDERS: PCP Nurse Practitioner; Visit Provider Nurse Practitioner
DX: M85.89 Other specified disorders of bone density and structure, multiple sites (principal); M81.0 Age-related osteoporosis without current pathological fracture
CPT/HCPCS: 77080

== ENCOUNTER 2024-11-27 08:05 | Outpatient (CLI) | payer MEDICARE, SELFPAY ==
--- NOTE | ~2024-11-27 | MM_ITS ---
EXAMINATION: MM screening sam BI w simone HISTORY: Screening TECHNIQUE: Craniocaudal and mediolateral oblique 3-D tomosynthesis images were obtained and synthetic 2-D images were generated. CAD analysis was submitted and interpreted. COMPARISON: 08/29/2022 BREAST PARENCHYMAL COMPOSITION: There are scattered areas of fibroglandular density. FINDINGS: There is no evidence of suspicious mass, calcification, or architectural distortion to suggest malignancy. There has been no suspicious interval change. IMPRESSION: 1. No mammographic evidence of malignancy. Recommend routine screening mammography in one year. BI-RADS Category 2: Benign finding(s) Reviewed, dictated and finalized at location Q. IMPRESSION: 1. No mammographic evidence of malignancy. Recommend routine screening mammogra phy in one year. BI-RADS Category 2: Benign finding(s)
--- OUTSIDE RECORDS SUMMARY | 2024-11-27 08:09 | XMS_ITS | Encounter Summary ---
Author Organization [facility] Address [address] [place] [address] Phone Care Team Providers Care Quarry Plug And Feather Driller Name Role Phone Nithin Mata DO Primary Care Provider [phone] Encounter Details Date Type Department Care Team [...] on file Legal Sex Female 8:40 AM OFFICE SPECIALIST Gender Identity Not on file Sexual [...] on filedocumented in this encounter Care Teams Quarry Plug And Feather Driller Relationship Specialty Start Date End Date Nithin Mata DO PCP - General Internal Medicine 08/26/17 documented as of this encounter
--- OUTSIDE RECORDS SUMMARY | 2024-11-27 08:09 | XMS_ITS | Clinical Summary ---
Author Organization [facility] Address [address] [place] [address] Care Team Providers Care Care Asst Name Role Phone Nithin Mata DO Primary Care Provider [phone] Allergies No known active allergies Medications Prescription [...] nausea 20 tablet 11 11/04/19 24 Active Wegovy 2.4 mg/0.75 mL auto-injectorIndic ations:BMI 32.0-32.9,adult,Pu re hypercholesterolem ia,Metabolic and nutritional disorder,Primary hypertension INJECT 2.4MG SUBCUTANEOUSLY ONCE EVERY 7 DAYS 3 mL 1 10/14/19 25 Active Active Problems Problem Noted Date Diagnosed Date [...] phone. Assessment & Plan (01/02/2021 10:51 AM PAPERBOARD MACHINE OPERATOR): Discussed that significant health benefits/risk reduction [...] RA. Assessment & Plan (01/07/2021 3:52 PM PAPERBOARD MACHINE OPERATOR): Labs. Reviewed available prior labs in chart and Care Everywhere. Recommended low-glycemic diet. Reviewed importance of adequate protein intake of 1-1.2 g/kg IBW/day. Hx of bariatric surgery 08/26/2017 Assessment & Plan (01/07/2021 3:54 PM PAPERBOARD MACHINE OPERATOR): Routine labs to evaluate for vitamin deficiencies in setting of intestinal malabsorption. Intestinal malabsorption 08/26/2017 Assessment & Plan (01/07/2021 3:54 PM PAPERBOARD MACHINE OPERATOR): Routine labs to evaluate for vitamin deficiencies in setting of intestinal malabsorption. Hypertension 08/26/2017 Assessment & Plan (01/07/2021 3:50 PM PAPERBOARD MACHINE OPERATOR): Reviewed role of diet, exercise, weight loss in controlling blood pressure. Recommended low sodium/DASH diet. GERD (gastroesophageal reflux disease) 8 Hyperlipidemia 08/26/2017 Assessment & Plan (01/07/2021 3:50 PM PAPERBOARD MACHINE OPERATOR): Discussed role of diet, exercise and [...] eating. Assessment & Plan (01/07/2021 3:53 PM PAPERBOARD MACHINE OPERATOR): Obesity is worsening. General weight loss/lifestyle [...] on file Legal Sex Female 8:40 AM PAPERBOARD MACHINE OPERATOR Gender Identity Not on file Sexual Orientation Not on file Obstetrics History Last Filed Vital Signs Vital Sign Reading Time Taken Comments Blood Pressure 181/101 06/09/2024 9:34 AM CDT Pulse 61 12/24/2023 9:23 AM PAPERBOARD MACHINE OPERATOR Temperature 36.3 C (97.3 F) 08/23/2022 2:30 PM CDT Respiratory Rate 28 08/23/2022 3:01 PM CDT Oxygen Saturation 99% 12/24/2023 9:23 AM PAPERBOARD MACHINE OPERATOR Inhaled Oxygen Concentration - - Weight [...] Advance Directives For more information, please contact: [phone] * Full Code (Latest Code Status on File) Date Activated Date Inactivated Comments 08/23/2022 1:05 PM 08/23/2022 7:22 PM * Full Code Date Activated Date Inactivated Comments 07/25/2017 8:40 AM 07/25/2017 12:16 PM Care Teams Care Asst Relationship Specialty Start Date End Date Nithin Mata DO PCP - General Internal Medicine 08/26/17
--- OUTSIDE RECORDS SUMMARY | 2024-11-27 08:09 | XMS_ITS | Clinical Summary ---
Author Organization [facility] Address [address] [place] [address] Care Team Providers Care Mainframe Architect Name Role Phone Unavailable Primary Care Provider [...] 09/21/2022 COVID-19 Vaccine (2023-2 5 season) 2024 Influenza Adult (#1) 2024 Meningococcal B Vaccine Aged Out No l onger eligible based on patient's age to complete this topic Meningococcal Vaccine Aged Out No natan ruben eligible based on patient's age to complete this topic RSV Immunizations Under 20 Months Aged Out No longer eligible based on patient's age to complete this topic
== END 2024-11-27 08:06 | disposition home or self-care (01) ==
LOC: ANHFOHIMG 08:06
PROVIDERS: PCP Nurse Practitioner; Visit Provider Nurse Practitioner
DX: Z12.31 Encounter for screening mammogram for malignant neoplasm of breast (principal)
CPT/HCPCS: 77063; 77067

== ENCOUNTER 2024-12-07 06:42 | Outpatient (CLI) | payer MEDICARE, SELFPAY ==
[2024-12-07 08:06] LABS: Albumin Level 3.7 g/dL (3.5-5.1); Anion Gap 5 mmol/L (4-12); Blood Urea Nitrogen 27 mg/dL (7-17); Calcium 8.7 mg/dL (8.4-10.2); Carbon Dioxide 25 mmol/L (22-30); Chloride 107 mmol/L (98-107); Estimated Glomerular Filt Rate 54; Glucose 85 mg/dL (65-110); Potassium 4.0 mmol/L (3.4-5.0); Sodium 137 mmol/L (137-145)
[2024-12-07 08:35] LABS: Parathyroid Intact 111.5 pg/mL (14.5-75.2)
[2024-12-07 10:04] LABS: Total Protein Urine Random 18 mg/dL; Ur Ttl Prot Creatinine Ratio 0.25 mg/mg (0-0.20)
== END 2024-12-07 06:43 | disposition home or self-care (01) ==
LOC: ANHLAB 06:50
PROVIDERS: PCP Nurse Practitioner; Referring Provider Internal Medicine Endocrinology, Diabetes & Metabolism; Visit Provider Internal Medicine Nephrology
DX: E34.9 Endocrine disorder, unspecified (principal); E55.9 Vitamin D deficiency, unspecified; N18.31 Chronic kidney disease, stage 3a; Z98.84 Bariatric surgery status
CPT/HCPCS: 36415; 80069; 82306; 82570; 83970; 84156

== ENCOUNTER 2024-12-10 07:18 | Outpatient (NON) | payer SELFPAY ==
--- OUTSIDE RECORDS SUMMARY | 2024-12-10 07:30 | XMS_ITS | Encounter Summary ---
Author Organization [facility] Address [address] [place] [address] Phone Care Team Providers Care Wrecking Crane Engine Operator Name Role Phone Nithin aMta DO Primary Care Provider [phone] Encounter Details Date Type Department Care Team [...] on file Legal Sex Female 8:40 AM RESIDENTIAL ADVISOR Gender Identity Not on file Sexual Orientation [...] on filedocumented in this encounter Care Teams Wrecking Crane Engine Operator Relationship Specialty Start Date End Date Nithin Mata DO PCP - General Internal Medicine 08/26/17 documented as of this encounter
--- OUTSIDE RECORDS SUMMARY | 2024-12-10 07:30 | XMS_ITS | Clinical Summary ---
Author Organization [facility] Address [address] [place] [address] Care Team Providers Care Laser Cutter Name Role Phone Unavailable Primary Care Provider [...] - 1-dose 75+ series) 09/21/2022 COVID-19 Vaccine ( - 2024-2 6 season) 2024 Influenza Adult (#1) 2024 Hepatitis A Vaccines Aged Out No long er eligible based on patient's age to complete this topic Meningococcal B Vaccine Aged Out No l onger eligible based on patient's age to complete this topic Meningococcal Vaccine Aged Out No natan ruben eligible based on patient's age to complete this topic RSV Immunizations Under 20 Months Aged Out No longer eligible based on patient's age to complete this topic
--- OUTSIDE RECORDS SUMMARY | 2024-12-10 07:30 | XMS_ITS | Clinical Summary ---
Author Organization [facility] Address [address] [place] [address] Care Team Providers Care Diaper Machine Tender Name Role Phone Nithin Mata DO Primary Care Provider [phone] Allergies No known active allergies Medications Prescription Drug name: Chewable MVI Dose:1 tab. [...] DAYS 3 mL 1 10/14/19 25 Active denosumab (PROLIA) 60 mg/mL syringe Inject 1 mL (60 mg total) under the skin 06/02/19 25 Active Prescription Drug name: biotin Dose: 1 tab. Route: po Frequency: daily Duration: 025 Disconti nued(Pat ient Reported ) Active Problems Problem Noted Date Diagnosed Date [...] phone. Assessment & Plan (01/02/2021 10:51 AM DIRECTOR SELECTION AND ADMINISTRATION): Discussed that significant health benefits/risk reduction may [...] RA. Assessment & Plan (01/07/2021 3:52 PM DIRECTOR SELECTION AND ADMINISTRATION): Labs. Reviewed available prior labs in chart and Care Everywhere. Recommended low-glycemic diet. Reviewed importance of adequate protein intake of 1-1.2 g/kg IBW/day. Hx of bariatric surgery 08/26/2017 Assessment & Plan (01/07/2021 3:54 PM DIRECTOR SELECTION AND ADMINISTRATION): Routine labs to evaluate for vitamin deficiencies in setting of intestinal malabsorption. Intestinal malabsorption 08/26/2017 Assessment & Plan (01/07/2021 3:54 PM DIRECTOR SELECTION AND ADMINISTRATION): Routine labs to evaluate for vitamin deficiencies in setting of intestinal malabsorption. Hypertension 08/26/2017 Assessment & Plan (01/07/2021 3:50 PM DIRECTOR SELECTION AND ADMINISTRATION): Reviewed role of diet, exercise, weight loss in controlling blood pressure. Recommended low sodium/DASH diet. GERD (gastroesophageal reflux disease) 8 Hyperlipidemia 08/26/2017 Assessment & Plan (01/07/2021 3:50 PM DIRECTOR SELECTION AND ADMINISTRATION): Discussed role of diet, exercise and weight [...] eating. Assessment & Plan (01/07/2021 3:53 PM DIRECTOR SELECTION AND ADMINISTRATION): Obesity is worsening. General weight loss/lifestyle modification strategies discussed (elicit support from others; identify saboteurs; non-food rewards, etc). Diet interventions: as noted. Informal exercise measures discussed, e.g. taking stairs instead of elevator. Regular aerobic exercise program discussed. More detailed recommendations pending review of labs, food record. Encounters Date Type Department Care Team Description 11/30/2024 10:00 AM CDT Office Visit [facility] Minimally Invasive Surgery [address] [place] [address] Medical Office Building [address] [place] [address] Yodit Shine NP Weight loss counseling, encounter for (Primary Dx); BMI 28.0-28.9,adult from Last 3 Months Surgical History Surgery [...] on file Legal Sex Female 8:40 AM DIRECTOR SELECTION AND ADMINISTRATION Gender Identity Not on file Sexual Orientation Not on file Obstetrics History Last Filed Vital Signs Vital Sign Reading Time Taken Comments Blood Pressure 190/89 11/30/2024 9:51 AM CDT Pulse 62 11/30/2024 9:51 AM CDT Temperature 36.3 C (97.3 F) 08/23/2022 2:30 PM CDT Respiratory Rate 28 08/23/2022 3:01 PM CDT Oxygen Saturation 99% 12/24/2023 9:23 AM DIRECTOR SELECTION AND ADMINISTRATION Inhaled Oxygen Concentration - - Weight 69.4 kg (153 lb) 11/30/2024 9:51 AM CDT Height 154.9 cm (5' 1) 11/30/2024 9:51 AM CDT Body Mass Index 28.91 11/30/2024 9:51 AM CDT Plan of Treatment Health Maintenance Due Date Last Done Comments Depression Screening 1945 Hepatitis C Screening 1945 Osteoporosis Screening-Bone Density Scan 1945 DTaP/Tdap/Td Vaccine (1 - Tdap) 09/21/1958 Hepatitis B Screening 09/21/1965 Well Visit 65+ 09/21/2012 Fall Risk Assessment 08/24/2023 08/23/2022 Influenza Vaccine (#1) 2024 0, 10/27/2018, 12/18/2017, Additional history exists Pneumococcal vaccine 65+ Completed 019, 12/18/2017, 11/20/2016 Zoster Vaccine Completed 11/26/2019, 10/27/2018 Insurance [facility] MEDICARE [facility] MEDICARE Advance Directives For more information, please contact: [phone] * Full Code (Latest Code Status on File) Date Activated Date Inactivated Comments 08/23/2022 1:05 PM 08/23/2022 7:22 PM * Full Code Date Activated Date Inactivated Comments 07/25/2017 8:40 AM 07/25/2017 12:16 PM Care Teams Diaper Machine Tender Relationship Specialty Start Date End Date Nithin Mata DO PCP - General Internal Medicine 08/26/17
[2024-12-10 10:32] LABS: Creatinine 24 Hour Urine 0.7 gm/24 (0.8-1.8); Total Volume 24 Hour Urine 1000 ml
[2024-12-11 11:09] LABS: Calcium, Urine 1.5 mg/dL (Not Estab.)
== END 2024-12-10 07:19 | disposition home or self-care (01) ==
LOC: ANHLAB 07:19
PROVIDERS: PCP Nurse Practitioner; Visit Provider Internal Medicine Nephrology
DX: N18.31 Chronic kidney disease, stage 3a (principal); E34.9 Endocrine disorder, unspecified; E55.9 Vitamin D deficiency, unspecified; Z98.84 Bariatric surgery status
CPT/HCPCS: 81050; 82340; 82570